=== PATIENT | female | born 1950 | race Caucasian/White ===

== ENCOUNTER 2016-11-29 14:54 | Emergency (ER) | payer MEDICARE, OTHER ==
[2016-11-29 15:24] VITALS: BP 145/75
--- NOTE | 2016-11-29 16:37 | ED Physician Documentation ---
PD HPI LOWER EXT INJURY - Stated complaint Stated Complaint: R ankle pain - Chief complaint Chief Complaint: Ext Problem - History obtained from History obtained from: Patient, Friend - History of Present Illness PD HPI LOW EXT INJURY LOCATION: Right, Lower leg, Ankle Type of injury: Twist Where injury occurred: Home Timing - onset: Today Timing - duration: Hours Timing - details: Abrupt onset, Still present Improved by: Rest, Immobilization Worsened by: Moving, Palpating Associated symptoms: No: Weakness, Numbness, Tingling, Swelling Contributing factors: No: Anticoagulated Similar symptoms before: Has not had sx before Recently seen: Not recently seen - Additional information Additional information: 66 y/o female stepped into a ditch on top of a drainage culvert and forcibly dorsiflexed the foot. She has pain in the calf with a burning sensation and the pain she had in her ankle is now resolved. She has pain with dorsiflexion. Review of Systems Constitutional: denies: Fever Eyes: denies: Decreased vision Respiratory: denies: Cough GI: denies: Vomiting Skin: denies: Rash Musculoskeletal: reports: Extremity pain, Pain with weight bearing. denies: Neck pain, Back pain, Joint pain, Extremity swelling Neurologic: denies: Generalized weakness, Focal weakness, Numbness PD PAST MEDICAL HISTORY - Past Medical History Past Medical History: Yes Cardiovascular: None Respiratory: None Neuro: None Endocrine/Autoimmune: None - Past Surgical History Past Surgical History: Yes General: Appendectomy /EXTENSION FORESTER: Hysterectomy HEENT: Tonsil/Adenoidectomy - Present Medications Home Medications: Ambulatory Orders Medication Instructions Recorded Confirmed Atorvastatin Calcium [Lipitor] 40 mg PO DAILY 02/18/16 02/18/16 Levothyroxine [Synthroid] 100 mcg PO QDAC 02/18/16 02/18/16 - Allergies Allergies/Adverse Reactions: Allergies Allergy/AdvReac Type Severity Reaction Status Date / Time atropine AdvReac Nausea Verified 11/29/16 15:24 corn AdvReac Unknown Verified 11/29/16 15:24 Penicillins AdvReac Itching Verified 02/18/16 22:12 Sulfa (Sulfonamide AdvReac Itching Verified 02/18/16 22:12 Antibiotics) - Social History Does the pt smoke?: No Smoking Status: Never smoker Does the pt drink ETOH?: Yes Does the pt have substance abuse?: No - Immunizations Immunizations are current?: Yes - POLST Patient has POLST: No PD ED PE NORMAL - Vitals Vital signs reviewed: Yes (hypertensive ) - General General: Alert and oriented X 3, No acute distress, Well developed/nourished - HEENT HEENT: Atraumatic, PERRL - Respiratory Respiratory: No respiratory distress - Derm Derm: Normal color, Warm and dry, No rash - Extremities Extremities: Other (There is pain to the posterior calf with dorsiflexion. There is no palpable defect in the tendon and the majority of pain is in the gastrocs. ) - Neuro Neuro: No motor deficit, No sensory deficit - Psych Psych: Normal mood, Normal affect Results - Vitals Vitals: Vital Signs - 24 hr 11/29/16 15:18 Temperature 36.7 C Heart Rate 75 Respiratory 14 Rate Blood Pressure 145/75 H O2 Saturation 100 Oxygen O2 Source Room air - Rads (name of study) right ankle Radiology: Prelim report reviewed (Impression: No acute fracture or subluxation. ), EMP read indepedently, See rad report PD MEDICAL DECISION MAKING - ED course Complexity details: reviewed results, re-evaluated patient, considered differential, d/w patient, d/w family ED course: 66 y/o female with acute dorsiflexion injury has pain along the achilles tendon and into the gastrocs. We have placed her into a walking boot and I have recommended she follow up with ortho for re-exam and consideration for further imaging in the next week. Departure - Departure Disposition: 01 Home, Self Care Clinical Impression: Achilles tendinitis of right lower extremity Condition: Stable Instructions: ED Tendon Rupture Achilles, Achilles Tendonitis Follow-Up: [facility] [Provider Group] Comments: wear the walking boot and follow up with the orthopedic clinic next week for re- examination and potential imaging.
--- NOTE | 2016-11-29 16:49 | XRAY Preliminary Report ---
Exam: XR Ankle 3 View RT IMPRESSION: No acute fracture or subluxation. [facility] SITE ID: [id number]
--- NOTE | 2016-11-29 16:52 | XRAY Report ---
EXAM: RIGHT ANKLE RADIOGRAPHY EXAM DATE: 11/29/2016 04:26 PM. CLINICAL HISTORY: Pain after falling. COMPARISON: None. TECHNIQUE: 3 views. FINDINGS: Bones: No fracture or bony destruction. Joints: Joint space and alignment appear satisfactory. Soft Tissues: No abnormal calcifications. IMPRESSION: No acute fracture or subluxation. [facility] Referring Provider Line: [phone] SITE ID: [id number]
== END 2016-11-29 17:16 | disposition home or self-care (01) ==
LOC: ED 14:54
DX: M76.61 Achilles tendinitis, right leg (principal); X50.1XXA Overexertion from prolonged static or awkward postures, initial encounter; R03.0 Elevated blood-pressure reading, without diagnosis of hypertension; Z90.710 Acquired absence of both cervix and uterus
CPT/HCPCS: 99283

== ENCOUNTER 2017-02-06 11:48 | Outpatient (CLI) | payer MEDICARE, OTHER | END 2017-02-06 11:49 | disposition home or self-care (01) | LOC: LAB 11:48 | PROVIDERS: ATTEND Internal Medicine | DX: E03.9 Hypothyroidism, unspecified (principal) | CPT/HCPCS: 36415; 84443 ==

== ENCOUNTER 2018-02-27 08:14 | Outpatient (CLI) | payer MEDICARE, OTHER ==
--- NOTE | 2018-02-27 12:10 | Ultrasound Report ---
Reason: ELEVATED LFT'S Procedure Date: 02/27/2018 Accession Number: [id number] / [id number] Procedure: US - Abdomen Limited CPT Code: FULL RESULT: EXAM: ABDOMEN ULTRASOUND LIMITED, RUQ EXAM DATE: 02/27/2018 08:28 AM. CLINICAL HISTORY: Elevated LFTs COMPARISON: None. TECHNIQUE: Real-time scanning was performed with static images obtained. FINDINGS: Liver: The liver is moderately and diffusely echogenic. Normal contour. No masses. Caudate lobe simple appearing cyst 1.3 cm. Right lobe simple appearing cyst 1.0 cm. The liver measures 20.2 cm. Main portal vein flow: Hepatopetal. Gallbladder: No stones, wall thickening, or sonographic Kern's sign. Biliary System: CBD measures 5 mm. No intrahepatic or extrahepatic ductal dilatation. 2 parapelvic right renal cysts are noted 1.3 cm and 1.1 cm. IMPRESSION: Moderate hepatic steatosis. Hepatomegaly. [facility]
== END 2018-02-27 08:15 | disposition home or self-care (01) ==
LOC: DI 08:14
PROVIDERS: ATTEND Internal Medicine
DX: R74.8 Abnormal levels of other serum enzymes (principal); K76.0 Fatty (change of) liver, not elsewhere classified
CPT/HCPCS: 76705

== ENCOUNTER 2018-03-13 09:45 | Outpatient (CLI) | payer MEDICARE, OTHER | END 2018-03-13 09:46 | disposition home or self-care (01) | LOC: RT 09:45 | PROVIDERS: ATTEND Internal Medicine Gastroenterology | DX: E78.5 Hyperlipidemia, unspecified (principal); E66.01 Morbid (severe) obesity due to excess calories | CPT/HCPCS: 93005 ==

== ENCOUNTER 2018-03-19 07:05 | Day surgery (SDC) | payer MEDICARE, OTHER ==
[2018-03-19] MEDS ORDERED: LACTATED RINGERS 1,000 ML IV ONE (07:37)
[2018-03-19] MEDS ORDERED: fentaNYL 250 MCG/5 ML VIAL IVP ONE (08:25)
[2018-03-19] MEDS ORDERED: MIDAZOLAM 2 MG/2 ML VIAL IVP ONE (08:25)
[2018-03-19 09:50] VITALS: BP 132/72
== END 2018-03-19 07:06 | disposition home or self-care (01) ==
LOC: SDS 07:05
PROVIDERS: ATTEND Internal Medicine Gastroenterology
PROC: 0DBN8ZZ Excision of Sigmoid Colon, Via Natural or Artificial Opening Endoscopic (ICD-10-PCS; 2018-03-19)
PROC: 0DBM8ZZ Excision of Descending Colon, Via Natural or Artificial Opening Endoscopic (ICD-10-PCS; principal; 2018-03-19 08:15)
DX: D12.4 Benign neoplasm of descending colon (principal); D12.5 Benign neoplasm of sigmoid colon; K57.30 Diverticulosis of large intestine without perforation or abscess without bleeding; E03.9 Hypothyroidism, unspecified; E78.5 Hyperlipidemia, unspecified; E66.01 Morbid (severe) obesity due to excess calories; Z68.41 Body mass index [BMI] 40.0-44.9, adult; Z86.19 Personal history of other infectious and parasitic diseases
CPT/HCPCS: 45385; J3010; J7120

== ENCOUNTER 2019-04-12 09:27 | Outpatient (CLI) | payer MEDICARE, OTHER ==
[2019-04-12 12:55] VITALS: BP 170/115
--- NOTE | 2019-04-12 12:55 | SLEEP CARE CONSULTATION ---
Information from patient questionnaire entered by Alejandra Nicholson. I have reviewed and concur with the information entered by Alejandra Nicholson. This document represents the service I personally performed and the decisions made by me, Jeimy Lindsay MD, [facility]. History of Present Illness Reason for Visit: New patient Chief Complaint: reports: Unrefreshed sleep, Snoring, Excessive daytime sleepiness, Observed pauses in breathing Duration of Symptoms: 2 YEARS Usual bedtime: 12:00 AM Time it takes to fall asleep: 15-30 minutes Snores at night: Yes Observed to quit breathing while asleep: Yes Number of times waking at night: 2-3 minutes Reasons for waking at night: reports: Snoring, Bathroom Toss, Turn, or Twitch while sleeping: No Recalls having dreams: Yes Usually gets out of bed at: 6:00-7:30 am Feels refreshed in the morning: Yes Morning headache: No Sleepy or fatigued during the day: Yes Ever fallen asleep while driving: No Takes day naps: Yes Dreams during day naps: No Prior sleep studies: No Additional HPI information: I had the pleasure of seeing Ms. Garcia today regarding the possibility of her having a sleep disorder. As you know, she is a 68 year old lady who complains of loud snore and was observed to stop breathing at night during a recent trip where she shared room with her friends. She sleeps alone at home. She can recall waking up on the average of 2 - 3 times during the night. Most of the time she wakes up because of having to use the bathroom. She has awakened occasionally because of her own snoring, but choking, or having to gasp for air. There is not a lot of tossing and turning in her sleep. No somniloquy (sleep talking) or somnambulism (sleep walking). She clenches her teeth at night. Generally she can recall having dreams. She occasionally has a morning headache that goes away quickly. During the day she complains of feeling sleepy and fatigued. Her score on [place] Sleepiness Scale is 11 out of 24. She has never fallen asleep while driving nor has had any accident due to sleepiness. She usually takes long naps during the day. Upon falling asleep during the day she denies having vivid dreams. She has never had sleep paralysis, experienced cataplexy or symptoms of restless leg syndrome. She denies having impaired concentration during the day. Subjective Initial [place] Sleepiness Scale score: 11 Past Medical History Past Medical History: reports: Hypothyroidism Social History The patient's occupation is retired. Patient is Single and lives in [place]. Have you smoked in the past 12 months: No Alcohol use: Yes Alcohol amount and frequency: 1 glass/month Caffeine use: Yes Caffeine amount and frequency: 1-2 cups/day Family History Family history of sleep disordered breathing: No Allergies and Home Medications Drug allergies reviewed: Yes Home medication list reviewed: Yes Review of Systems Weight gain over past 5 years: 40 Weight loss over past 5 years: 45 Cardiovascular: denies: high blood pressure, palpitations, chest pain, irregular heart rate or pulse, leg or foot swelling, have to sleep sitting up, other Respiratory: denies: shortness of breath, wheeze, sputum production, chronic cough, other Gastrointestinal: denies: heartburn, difficulty swallowing, nausea, vomitting, diarrhea, abdominal pain, other Urinary: reports: incontinence, urgency Neurological: denies: headaches, seizure, head trauma, disorientation, speech dysfunction, gait or balance problems, fainting or unconsciousness, other Psychiatric: denies: Attention Deficit Hyperactivity, anxiety, depression, mood disorder, claustrophobia, other Ear/Nose/Throat: reports: sinus problems, tonsillectomy, wisdom teeth removed Endocrine: reports: thyroid disease Musculoskeletal: reports: muscle pain or cramping Immunologic: reports: allergies to food or environment Physical Exam Vital signs obtained and entered by: Dr. Lindsay Blood Pressure: 170/115 Cuff size: regular Heart Rate: 72 O2 Saturation: 94 Height: 5 ft 6 in Weight: 258 lb Body Mass Index: 41.6 BMI Classification: Obesity Class 3 Mood/affect: normal HEENT: No craniofacial malformation Nostrils: patent to airflow Turbinates: normal Septum: midline Mouth and throat: narrow oropharynx Soft palate: long Hard palate: normal Uvula: normal Uvula visualization: 25% Mallampati Class III Tongue: normal in size Tonsils: absent bilaterally Chin and jaw: normal size and position Neck: normal w/o lymphadenopathy or thyromegaly Heart: regular rate and rhythm Lungs: clear bilaterally Abdomen: soft Extremities: no edema or clubbing Neurologic: intact Impression and Plan IMPRESSION: 1. Obstructive Sleep Apnea-Hypopnea Syndrome, as suggested by history of loud and irregular snoring, observed cessation of breath while asleep, frequent awakenings during the night, unrefreshed sleep, cognitive impairment, and daytime hypersomnolence. Narrow oropharynx and obesity are common predisposing factors for obstructive sleep apnea-hypopnea syndrome. Untreated obstructive sleep apnea can also cause hypertension. Pathophysiology of sleep-disordered breathing was discussed. I recommend proceeding to polysomnography to confirm the diagnosis and to assess severity. If she has significant sleep disordered breathing, a manual CPAP titration study will also be performed to find the optimal treatment pressure. I informed the patient of what the sleep studies involve and after some discussion, she agreed to proceed. Plan: 1. Schedule polysomnography + manual CPAP titration study and return in 1 to 2 weeks after the study to discuss result and initiate therapy. 2. Avoid long distance driving or when feeling sleepy. 3. Avoid alcohol, sedative and muscle relaxant around bedtime. 4. Attempt to lose weight. 5. Follow up with primary care provider for the high blood pressure recorded. I spent 100% of the 15 minute visit [id number] with the patient with greater than 50% of this was spent time counseling the patient and coordination of care.
== END 2019-04-12 09:28 | disposition home or self-care (01) ==
LOC: SC 09:27
PROVIDERS: ATTEND Internal Medicine Pulmonary Disease
DX: G47.10 Hypersomnia, unspecified (principal); R06.81 Apnea, not elsewhere classified; G47.8 Other sleep disorders; R41.89 Other symptoms and signs involving cognitive functions and awareness; R06.83 Snoring; E66.9 Obesity, unspecified; Z68.41 Body mass index [BMI] 40.0-44.9, adult
CPT/HCPCS: 99203; G0463; 99212

== ENCOUNTER 2019-05-26 10:17 | Outpatient (CLI) | payer MEDICARE, OTHER ==
[2019-05-26 11:17] VITALS: BP 140/96
--- NOTE | 2019-05-26 11:17 | SLEEP CARE CONSULTATION ---
Information from patient questionnaire entered by Esme Awan. I have reviewed and concur with the information entered by Esme Awan. This document represents the service I personally performed and the decisions made by me, Ruchi Trejo, RN, MSN, [employer]. History of Present Illness Initial [place] Sleepiness Scale score: 11 Current [place] Sleepiness Scale score: 10 Additional HPI information: MAHI FLORES returns for follow up of the recently performed polysomnography and infromed of findings. I explained the pathophysiology behind obstructive sleep apnea. We then spent quite a bit of time discussing different treatment options. For mild obstructive sleep apnea, surgery and oral appliance are alternatives to nasal CPAP therapy but in moderate or severe cases, nasal CPAP is the most effective and reliable treatment. I reviewed the impact of weight changes on sleep apnea and strongly recommended losing weight. After some discussion, the patient opted to go with the nasal CPAP therapy. We discussed the difference between initiating therapy with a manual titration study or with autoCPAP therapy. The patient chose autoCPAP therapy. Nasal autoCPAP set at [id number] will be ordered with rationale explained. A manual titration study will be ordered if unable to find optimal pressure with office adjustments. I explained how CPAP machine works with sample devices Respironics Dreamstation and [id number] and what to expect when using the machine. Using CPAP every night in order to get used to it was emphasized. Patient advised to put CPAP mask on before getting into bed so as not to fall asleep without CPAP. To assist acclimation to CPAP use, it could also be used for a short time during day while reading or watching TV. The patient was instructed to call the CPAP supplier to discuss any mechanical problem that may occur. If the mask given is uncomfortable or is difficult to keep on through the night even with adjustment, contact the CPAP supplier as many will replace with another mask style if notified before 30 days. If snoring or perceives is not getting enough air or too much air from the machine, notify this office. AAS patient education PAP tips reviewed and given to patient. Patient counseled not drink alcohol less than 4 hours before bedtime as it can increase snoring and apnea. Patient was cautioned about risks of drowsy driving until sleepiness symptoms resolve. Patient denies drowsy driving. AAS patient education on snoring and sleep apnea given and reviewed. Sleep Study - Polysomnography Polysomnography findings: The quality of the study is good. The patient had reduced sleep efficiency due to frequent and prolonged awakenings after the sleep onset. The sleep architecture was abnormal for sleep fragmentation and reduced amount of time spent in REM sleep. Respiratory monitoring showed moderate obstructive sleep apneahypopnea (AHI = 29.8) associated with frequent arousals, oxyhemoglobin desaturation and moderate hypoxia (billie oxygen saturation of 78%). Baseline oxygen saturation was normal. The respiratory events occurred independently of sleep stage and body position (supine AHI = 31.8; non-supine = 27.11). Snore was moderate to loud in intensity. There was moderate periodic leg movement of sleep contributing to the sleep fragmentation. Cardiac rhythm was normal sinus rhythm with occasional premature ventricular contractions. No abnormal behavior (parasomnia) observed during the night. Allergies and Home Medications Known drug allergies: Yes ( see list) Home medication list reviewed: Yes Allergy and home medication list: levothyroxine 1.75mcg daily Review of Systems Review of systems same as previous: Yes Physical Exam Blood Pressure: 140/96 (running this range of 120-140 / 85 monitored by PCP) Cuff size: long Heart Rate: 74 O2 Saturation: 97 Height: 5 ft 6 in Weight: 257 lb Body Mass Index: 41.4 BMI Classification: Obesity Class 3 Impression and Plan 1. Obstructive Sleep Apnea-Hypopnea Syndrome, moderate , with lowest oxygen saturation of 78%. Obviously this is the cause of the patients symptoms of unrefreshed sleep, and excessive daytime sleepiness. As mentioned above, the patient will be started on nasal autoCPAP therapy with pressure set at 4-15 cmH2 O. A manual titration study will be completed if unable to find optimal treatment pressure with office adjustments. Compliance guidelines also reviewed. A copy of compliance guidelines will be given for reference at check out. 2. Periodic limb movement, , that did fragment patients sleep. Periodic limb movement of sleep (PLMS) is characterized by episodes of repetitive limb movements that occur during sleep and usually involve the lower limbs. The etiology is unknown but can be associated with restless leg syndrome (RLS), neuropathy, spinal cord diseases, kidney disease, rheumatological disorders, narcolepsy, obstructive sleep apnea, and REM sleep behavior disorder. Other factors that can increase PLMS and/or RLS are heredity and iron deficiency as reflected by a low serum ferritin level below 50 to 75mcg / L. Several medications can precipitate or aggravate PLMS such as selective serotonin re- uptake inhibitor antidepressants, tricyclic antidepressants, lithium, and dopamine receptor antagonists with the exception of bupropion. Caffeine can also aggravate PLMS and should be avoided. Sleep hygiene methods can also improve sleep as well as lifestyle changes such as regular exercise. Patient was advised that further evaluation is indicated and to follow up with her PCP to rule out iron deficiency or other cause. 2. Elevated blood pressure. 140/96 at beginning of visit and 144/96 at end of visit. Patient does not monitor at home. It has been noted to be elevated at past and has discussed with PCP. Patient advised to follow up with PCP for further evaluation and discussed cardiac and stroke health risks associated with untreated hypertension. Patient agreed with plan. Patient advised of importance of monitoring her blood pressure at home so that her PCP can see what her blood pressure is at home. A home monitor can be bought at local pharmacies and then brought to PCP to check accuracy. She was informed of urgent guidelines for evaluation with systolic over 180 or diastolic over 110. * Nasal auto CPAP therapy, pressure at 4-15cm H2O. * Attempt to lose weight. * Avoid alcohol consumption near bedtime. * Follow up with PCP for further evaluation of elevated blood pressure as well as PLMS. * The patient is again cautioned about driving until sleepiness completely resolves. * Return one month after CPAP obtained. I will assess response to therapy and compliance at that time. I spent 100% of this 43 minute visit face to face with the patient with greater than 50% of this was spent time counseling the patient and coordination of care. Patient also had many questions about treatment process that were answered.
== END 2019-05-26 10:18 | disposition home or self-care (01) ==
LOC: SC 10:17
PROVIDERS: ATTEND Nurse Practitioner Family
DX: G47.33 Obstructive sleep apnea (adult) (pediatric) (principal); E66.9 Obesity, unspecified; Z68.41 Body mass index [BMI] 40.0-44.9, adult; R03.0 Elevated blood-pressure reading, without diagnosis of hypertension
CPT/HCPCS: 99215; G0463; 99212

== ENCOUNTER 2019-08-18 10:30 | Outpatient (CLI) | payer MEDICARE, OTHER ==
--- NOTE | 2019-08-18 11:45 | SLEEP CARE CONSULTATION ---
Information from patient questionnaire entered by Esme Awan. I have reviewed and concur with the information entered by Esme Awan. This document represents the service I personally performed and the decisions made by me, Ruchi Trejo, RN, MSN, [employer]EL[employer]. History of Present Illness Previous diagnosis: Moderate, Obstructive Sleep Apnea-Hypopnea Syndrome AHI: 29.8 Reason for follow up: first compliance Equipment type: CPAP Equipment obtained from: [employer] Mask style: Full face (Dreamwear - sent by [employer] as unable to get call back from [facility]) Mask brand: Respironics Backup mask available: Yes (nasal mask first but oral venting and nasal bridge soreness. ) Last cushion change: none since set up HPI additional information: has not followed up with PCP re blood pressure or monitor at home. She asked BP monitoring preferences. CPAP Compliance Data - Data Reviewed with Patient Average duration of nightly device use: 6.45 Compliance rate %: 90 Current pressure setting (cmH2O): 4-13 Humidity settin Heated hose settin Average residual AHI: 8.9 (lower range noted the past week with new mask ) Central apnea: 1.1 Obstructive apnea: 4.8 Hypopnea: 3.0 Average large leak: 56 sec Subjective Missed days of use due to: reports: travel (unable to get distilled water. ), other Patient concerns: reports: air blowing in eyes (when sleeping on side and adjusts mask ), nasal congestion (frequent and can affect ability to breathe through nose when using CPAP. ), epistaxis (with nasal mask ,none since ). denies: mask leak noise, condensation in mask/hose, dry mouth, nose, throat Observed to snore while using device: No (sleeps alone ) Current pressure setting perceived as: comfortable On therapy, patient: reports: sleeping better, awakening more refreshed (slightly ), more rested overall (slightly ). denies: drowsiness while driving Initial [place] Sleepiness Scale score: 11 Current [place] Sleepiness Scale score: 10 Allergies and Home Medications Known drug allergies: Yes (see list) Home medication list reviewed: Yes (no changes ) Allergy and home medication list: mucinex prn Review of Systems Review of systems same as previous: Yes Physical Exam Blood Pressure: 170/90 (140/90 at end of visit. ) Cuff size: long Heart Rate: 88 O2 Saturation: 97 Height: 5 ft 6 in Weight: 264 lb Weight change since last visit: gained 7 pounds Body Mass Index: 42.6 BMI Classification: Morbidly Obese Impression and Plan 1. Obstructive Sleep Apnea-Hypopnea Syndrome, moderate, with fair treatment compliance and good apnea control. On CPAP therapy, the patient has better sleep quality and is slightly more rested overall. The patients pressure will be changed to autoCPAP 8-12 cmH20 For elevation of residual AHI. Patient advised to contact me if pressure change is uncomfortable so that it can be adjusted. Goals for apnea control discussed.Mask leaks predominately from when patient sleeps on their side can be reduced by using a CPAP pillow. A CPAP pillow sample was shown. This and other styles can be bought online for about $60. I also fitted her with a large mask cushion - medium from her set to see if it fits better. Nasal congestion can be reduced with increasing the CPAP humidity as shown on sample device. The heated hose can be adjusted higher if condensation with higher humidity setting. Saline nasal spray can also be used prior to CPAP to clear nasal secretions and wash off any nasal allergens to facilitate nasal breathing. In addition, a steamy shower before bed will often assist nasal drainage. Printed instructions given on how to change humidity and heated hose settings with rationale explaining why to change.Patient's apnea severity and rationale for treatment to reduce apnea, improve sleep quality and reduce cardiovascular and cerebrovascular events was reviewed. 2. Elevated blood pressure, higher initially 170/90 and by end of visit 140/90. Health risks of untreated hypertension discussed and rationale for follow up and importance of monitoring at home. Urgent followup guidelines given. Patient advised to follow up with PCP for further evaluation of elevated blood pressure. Patient agreed with plan. * Change CPAP pressure to 8-12 cmH2O * Implement methods to reduce mask leaks and nasal congestion. * Notify me if snoring with mask or feeling that the pressure is too much or too little * Attempt to lose weight * Call this office if any problems using CPAP * monitor blood pressure * Follow up with PCP for further evaluation of blood pressure. * Return for follow up in 1-2 months , or sooner if concerns arise Time Spent with Patient (minutes): 37 I spent 100% of this visit face to face with the patient with greater than 50% of this was spent time counseling the patient and coordination of care.
[2019-08-18 11:46] VITALS: BP 170/90
== END 2019-08-18 10:31 | disposition home or self-care (01) ==
LOC: SC 10:30
PROVIDERS: ATTEND Nurse Practitioner Family
DX: G47.33 Obstructive sleep apnea (adult) (pediatric) (principal); E66.01 Morbid (severe) obesity due to excess calories; Z68.41 Body mass index [BMI] 40.0-44.9, adult; R03.0 Elevated blood-pressure reading, without diagnosis of hypertension
CPT/HCPCS: 99214; G0463; 99212

== ENCOUNTER 2019-12-27 11:12 | Outpatient (CLI) | payer MEDICARE, OTHER ==
--- NOTE | 2019-12-27 12:07 | SLEEP CARE CONSULTATION ---
Information from patient questionnaire entered by Esme Awan. I have reviewed and concur with the information entered by Esme Awan. This document represents the service I personally performed and the decisions made by me, Ruchi Trejo, RN, MSN, [employer]. History of Present Illness Service Date and Time: 12/27/2019 1112 Previous diagnosis: Moderate, Obstructive Sleep Apnea-Hypopnea Syndrome AHI: 29.8 (in 2019) Reason for follow up: other (4 month with pressure change) Equipment type: CPAP Equipment obtained from: [employer] Mask style: Full face Mask brand: Respironics Backup mask available: Yes (old mask) Last cushion change: 1 month Prior sleep studies: Yes Year and Where: 2019 - [facility] Sleep HPI additional information: saw her PCP for elevated Blood pressure and monitors at home and running in range of 140/80 most days. No blood pressure medications added. CPAP Compliance Data - Data Reviewed with Patient Average duration of nightly device use: 6.55 Compliance rate %: 82.2 (90 days) Current pressure setting (cmH2O): 8-12 Humidity settin Heated hose settin Average residual AHI: 3.9 Average large leak: 5 min 27 sec Subjective Patient concerns: reports: nasal congestion (seasonal allergies ). denies: aerophagia, mask discomfort, air blowing in eyes, mask leak noise, condensation in mask/hose, dry mouth, nose, throat, epistaxis, other Observed to snore while using device: No (single sleeps alone) Current pressure setting perceived as: comfortable On therapy, patient: reports: sleeping better, awakening more refreshed, being more awake and alert during the day, more rested overall (however, has some mid afternoon fatigue). denies: drowsiness while driving Initial [place] Sleepiness Scale score: 11 (in 2019) Current [place] Sleepiness Scale score: 8 Allergies and Home Medications Known drug allergies: Yes (see list ) Home medication list reviewed: No (no changes stated ) Review of Systems Review of systems same as previous: Yes Physical Exam Blood Pressure: 160/100 Cuff size: long Heart Rate: 60 O2 Saturation: 98 Height: 5 ft 6 in Weight: 261 lb Body Mass Index: 42.1 BMI Classification: Morbidly Obese Impression and Plan 1. Obstructive Sleep Apnea-Hypopnea Syndrome, moderate , with good treatment compliance and good apnea control. On CPAP therapy, the patient has better sleep quality and is more rested overall. The residual AHI reduced from 8.9 to 3.6 on new pressure of [id number]. She has gained some weight since last seen. Current 90% average pressure is 11.4 and mean 9.7cmH20. I explained how her weight affects her apnea severity and CPAP pressure. She is advised to lose weight. Morbid obesity can also increase health risks as addressed at last visit. She is advised to discuss weight loss goals with her PCP and consider a diet consultation with rationale explained. The new full face mask is working much better especially with her nasal congestion from allergies. Nasal congestion can be reduced with increasing the CPAP humidity as shown on sample device. The heated hose can be adjusted higher if condensation with higher humidity setting. Saline nasal spray sample can also be used prior to CPAP to clear nasal secretions and wash off any nasal allergens to facilitate nasal breathing. In addition, a steamy shower before bed will often assist nasal drainage. Patient's apnea severity and rationale for treatment to reduce apnea, improve sleep quality and reduce cardiovascular and cerebrovascular events was reviewed. I also reviewed the benefit of consistent device use of CPAP for blood pressure. 2. Elevated blood pressure. 160/100 today at end of visit. Patient has been monitoring at home and generally 140/80 range or a little higher or lower. She saw her PCP as advised at last visit when blood pressure elevated. She is advised to retake once home later and rested and to contact PCP if still elevated. Urgent guidelines for follow up discussed if range of systolic 180 or higher or diastolic 110-120 or higher. I also discussed how weight loss can reduce blood pressure and can be noted with just 10 pounds or more. * * Continue auto CPAP pressure to 8-12 cmH2O * Notify me if snoring with mask or feeling that the pressure is too much or too little * implement methods to reduce nasal congestion * Attempt to lose weight * monitor blood pressure * Call this office if any problems using CPAP * Return for follow up in 6 months , or sooner if concerns arise Visit Type: In Office Time Spent with Patient (minutes): 25 Provider Statement: I spent 100% of the Face to Face Visit with the patient with greater than 50% spent counseling the patient and coordination of care.
[2019-12-27 12:08] VITALS: BP 160/100
== END 2019-12-27 11:13 | disposition home or self-care (01) ==
LOC: SC 11:12
PROVIDERS: ATTEND Nurse Practitioner Family
DX: G47.33 Obstructive sleep apnea (adult) (pediatric) (principal); R03.0 Elevated blood-pressure reading, without diagnosis of hypertension; E66.01 Morbid (severe) obesity due to excess calories; Z68.41 Body mass index [BMI] 40.0-44.9, adult
CPT/HCPCS: 99214; G0463; 99212

== ENCOUNTER 2020-04-21 19:47 | Outpatient (CLI) | payer MEDICARE, OTHER | END 2020-04-21 19:48 | disposition home or self-care (01) | LOC: COV 19:47 | PROVIDERS: ATTEND Family Medicine | DX: B34.9 Viral infection, unspecified (principal); R05 Cough; M79.10 Myalgia, unspecified site; R53.83 Other fatigue; J02.9 Acute pharyngitis, unspecified; R09.81 Nasal congestion; Z20.828 Contact with and (suspected) exposure to other viral communicable diseases ==

== ENCOUNTER 2020-11-15 10:27 | Outpatient (CLI) | payer MEDICARE, OTHER ==
[2020-11-15 11:25] LABS: BASOPHILS # (AUTO) 0.1 10^3/uL (0.0-0.1); BASOPHILS % (AUTO) 0.7 %; EOSINOPHILS # (AUTO) 0.1 10^3/uL (0.0-0.7); EOSINOPHILS % (AUTO) 1.7 %; HCT - HEMATOCRIT 52.5 % (37.0-47.0); HGB - HEMOGLOBIN 17.2 g/dL (12.0-16.0); LYMPHOCYTES # (AUTO) 1.8 10^3/uL (1.5-3.5); MEAN CORPUSCULAR HEMOGLOBIN 29.8 pg (27.0-31.0); MEAN CORPUSCULAR HGB CONC 32.8 g/dL (32.0-36.0); MEAN CORPUSCULAR VOLUME 90.8 fL (81.0-99.0); MEAN PLATELET VOLUME 10.4 fL (7.9-10.8); MONOCYTES # (AUTO) 0.4 10^3/uL (0.0-1.0); MONOCYTES % (AUTO) 5.1 %; NEUTROPHILS # (AUTO) 5.1 10^3/uL (1.5-6.6); PLT - PLATELET COUNT 253 10^3/uL (130-450); RED BLOOD COUNT 5.78 10^6/uL (4.20-5.40); RED CELL DISTRIBUTION WIDTH 13.5 % (12.0-15.0); WHITE BLOOD COUNT 7.5 x10^3/uL (4.8-10.8)
[2020-11-15 11:39] LABS: ALBUMIN 4.3 g/dL (3.2-5.5); ALBUMIN/GLOBULIN RATIO 1.5 (1.0-2.2); ALKALINE PHOSPHATASE 77 IU/L (42-121); ALT ALANINE AMINOTRANSFERASE 48 IU/L (10-60); AST ASPARTATE AMINOTRANSFERASE 30 IU/L (10-42); BUN - BLOOD UREA NITROGEN 19 mg/dL (6-20); CALCIUM 9.2 mg/dL (8.5-10.3); CARBON DIOXIDE - CO2 27 mmol/L (21-32); CHLORIDE 102 mmol/L (101-111); CHOL/HDL RATIO 6.8 (<4.4); CHOLESTEROL 238 mg/dL; CREATININE 0.8 mg/dL (0.4-1.0); GFR - MDRD 71 (>89); GLUCOSE 139 mg/dL (70-100); HDL CHOLESTEROL 35 mg/dL; LDL CHOLESTEROL,CALCULATED 172 mg/dL; LDL/HDL RATIO 4.9 (<4.4); MAGNESIUM 2.3 mg/dL (1.7-2.8); POTASSIUM 4.9 mmol/L (3.5-5.0); SODIUM 139 mmol/L (135-145); TOTAL PROTEIN 7.2 g/dL (6.7-8.2); TRIGLYCERIDES 156 mg/dL; VLDL CHOLESTEROL 31 mg/dL
[2020-11-15 11:56] LABS: ESTIMATED AVERAGE GLUCOSE 134 mg/dL (70-100); HEMOGLOBIN A1c% 6.3 % (4.27-6.07)
== END 2020-11-15 10:28 | disposition home or self-care (01) ==
LOC: LAB 10:27
PROVIDERS: ATTEND Internal Medicine
DX: E78.5 Hyperlipidemia, unspecified (principal); Z13.6 Encounter for screening for cardiovascular disorders; Z79.899 Other long term (current) drug therapy; E03.9 Hypothyroidism, unspecified; R76.0 Raised antibody titer; R25.2 Cramp and spasm; R30.0 Dysuria; R73.01 Impaired fasting glucose
CPT/HCPCS: 36415; 80053; 80061; 83036; 83721; 83735; 84443; 85025

== ENCOUNTER 2020-11-30 15:12 | Outpatient (CLI) | payer MEDICARE, OTHER ==
--- NOTE | 2020-11-30 16:11 | CT Report ---
PROCEDURE: HEAD WO INDICATIONS: POST MENOPAUSAL, WORSENING HEADACHES TECHNIQUE: Noncontrast 4.5 mm thick angled axial sections acquired from the foramen magnum to the vertex. For r adiation dose reduction, the following was used: automated exposure control, adjustment of mA and/or kV according to patient size. COMPARISON: None FINDINGS: Image quality: Excellent. CSF spaces: Basal cisterns are patent. No extra-axial fluid collections. The ventricles are symmet juanjo in size and shape. Brain: No intracranial bleeds or masses. There is cerebral volume loss for age, with resultant vent ricular and sulcal prominence. There are periventricular and deep white matter chronic small vessel ischemic changes. Parafalcine dural ossification centers. There is intracranial internal carotid silvana ry atherosclerosis. Skull and face: Hyperostosis frontalis. Calvarium and visualized facial bones appear intact, without suspicious lesions. Sinuses: Visualized sinuses and mastoids are clear. IMPRESSION: No acute intracranial disease process. Reviewed by: Edwina Gabriel MD, PhD on 11/30/2020 4:09 PM PDT Approved by: Edwina Gabriel MD, PhD on 11/30/2020 4:09 PM PDT Station ID: [id number]
--- NOTE | 2020-11-30 16:41 | DEXA Report ---
PROCEDURE: Dexa Spine and/or Hip INDICATIONS: POST MENOPAUSAL, WORSENING HEADACHES TECHNIQUE: Dual energy x-ray absorptiometry (DXA) was performed on a Octapoly System. Regions measur ed are the AP Spine, femoral neck, and if needed forearm. COMPARISON: None. FINDINGS: Lumbar Spine: Bone Mineral Density 1.175 g/cm/cm,T score 0, normal Left Hip: Bone Mineral Density 1.080 g/cm/cm,T score 0.6, normal Left Femoral Neck: Bone Mineral Density 0.982 g/cm/cm, T score -0.4, normal (T score greater or equal to -1.0: NORMAL) (T score from -1.1 to -2.4: OSTEOPENIA) (T score less than or equal to -2.5 to: OSTEOPOROSIS) Impression: Normal bone mineral density. Patients with diagnosis of osteoporosis or osteopenia should have regular bone mineral density assess ment. For those eligible for Medicare, routine testing is allowed once every 2 years. Testing frequ ency can be increased for patients who have rapidly progressing disease or for those who are receivin g medical therapy to restore bone mass. Reviewed by: Sanjuana Muñoz MD on 11/30/2020 4:40 PM PDT Approved by: Sanjuana Muñoz MD on 11/30/2020 4:40 PM PDT Station ID: [id number]
== END 2020-11-30 15:13 | disposition home or self-care (01) ==
LOC: DI 15:12
PROVIDERS: ATTEND Internal Medicine
DX: Z78.0 Asymptomatic menopausal state (principal); G43.909 Migraine, unspecified, not intractable, without status migrainosus

== ENCOUNTER 2020-12-21 10:39 | Outpatient (CLI) | payer MEDICARE, OTHER ==
[2020-12-21 11:22] VITALS: BP 140/82
--- NOTE | 2020-12-21 11:22 | SLEEP CARE CONSULTATION ---
Information from patient questionnaire entered by Esme Awan. I have reviewed and concur with the information entered by Esme Awan. This document represents the service I personally performed and the decisions made by , Rosa Al ARNP. History of Present Illness Service Date and Time: 12/21/2020 1039 Previous diagnosis: Moderate, Obstructive Sleep Apnea-Hypopnea Syndrome AHI: 29.8 (in 2019) Reason for follow up: annual (last seen 12/2019) Equipment type: CPAP Equipment obtained from: [employer] (getting supplies as needed) Mask style: Full face Backup mask available: Yes (old mask) Last cushion change: 2 months Prior sleep studies: Yes Year and Where: 2019 - [facility] Sleep HPI additional information: MAHI FLORES was diagnosed to have moderate, AHI 29.8, obstructive sleep apnea-hypopnea syndrome and returned today for CPAP therapy annual follow-up. CPAP Compliance Data - Data Reviewed with Patient Average duration of nightly device use: 6 hr 22 min Compliance rate %: 82.8 (180 days) Current pressure setting (cmH2O): 8-12 Humidity settin Heated hose settin Average residual AHI: 5.3 Average large leak: 12 min 13 sec Subjective Missed days of use due to: reports: mask issues, illness Patient concerns: reports: mask discomfort, dry mouth, nose, throat (dry mouth, sometimes sore throat). denies: aerophagia, air blowing in eyes, mask leak noise, condensation in mask/hose, nasal congestion, epistaxis, other Observed to snore while using device: No Current pressure setting perceived as: comfortable On therapy, patient: reports: sleeping better, awakening more refreshed, being more awake and alert during the day, more rested overall. denies: drowsiness while driving Initial [place] Sleepiness Scale score: 11 (in 2019) Current [place] Sleepiness Scale score: 11 Allergies and Home Medications Home medication list reviewed: Yes (motrin for tooth pain) Review of Systems Review of systems same as previous: Yes (tooth extraction 2 days ago) Physical Exam Blood Pressure: 140/82 Cuff size: wrist Heart Rate: 58 O2 Saturation: 97 Height: 5 ft 6 in Weight: 250 lb Body Mass Index: 40.3 BMI Classification: Morbidly Obese Impression and Plan 1. Obstructive Sleep Apnea-Hypopnea Syndrome, moderate, with good treatment compliance and fair apnea control with minimally elevated AHI. On CPAP therapy, the patient has better sleep quality and is more rested overall. She has been getting sleepy in the afternoons. I advised her to increase her sleep time to 7- 9 hours of sleep and we will change her pressure to try to reduce afternoon fatigue. The patients pressure will be changed to autoCPAP 10-12 cmH20 for elevation of residual AHI. Patient advised to contact me if pressure change is uncomfortable so that it can be adjusted. Goals for apnea control discussed. She has been having some mouth dryness and her humidity is set at 3. I advised her to increase her humidity to 4 to reduce dryness. Oral dryness can be reduced by adjusting humidity setting higher or heated hose lower or by adjusting both settings. Patient's apnea severity and rationale for treatment to reduce apnea, improve sleep quality and reduce cardiovascular and cerebrovascular events was reviewed. * Change auto CPAP pressure to 10-12 cmH2O * Notify me if snoring with mask or feeling that the pressure is too much or too little * Attempt to lose weight * Call this office if any problems using CPAP * Return for follow up in 1 year, or sooner if concerns arise Counseling Topics: Spare mask, Weight loss health impact Visit Type: In Office Time Spent with Patient (minutes): 20 Provider Statement: I spent 100% of the Face to Face Visit with the patient with greater than 50% spent counseling the patient and coordination of care.
== END 2020-12-21 10:40 | disposition home or self-care (01) ==
LOC: SC 10:39
PROVIDERS: ATTEND Nurse Practitioner Family
DX: G47.33 Obstructive sleep apnea (adult) (pediatric) (principal); E66.01 Morbid (severe) obesity due to excess calories; Z68.41 Body mass index [BMI] 40.0-44.9, adult
CPT/HCPCS: 99213; G0463; 99212

== ENCOUNTER 2021-03-06 14:35 | Outpatient (CLI) | payer MEDICARE, OTHER ==
--- NOTE | 2021-03-06 15:31 | Ultrasound Report ---
PROCEDURE: Duplex Ext Veins Left INDICATIONS: Left thigh, knee, and leg pain TECHNIQUE: Real-time imaging, as well as color and pulse Doppler interrogation, were performed of the lower extr emity deep veins from the inguinal ligament to the popliteal fossa. COMPARISON: None. FINDINGS: The deep veins are normally compressible, and free of intraluminal thrombus. Color and pu lse Doppler demonstrate normal phasic intraluminal flow. There is normal augmentation response to di stal compression maneuver. IMPRESSION: No sonographic evidence of DVT. Reviewed by: Mj Gasca MD on 03/06/2021 3:30 PM PDT Approved by: Mj Gasca MD on 03/06/2021 3:30 PM PDT Station ID: [id number]
== END 2021-03-06 14:36 | disposition home or self-care (01) ==
LOC: DI 14:35
PROVIDERS: ATTEND Internal Medicine
DX: M25.562 Pain in left knee (principal); M79.605 Pain in left leg; M79.652 Pain in left thigh

== ENCOUNTER 2021-03-27 13:26 | Outpatient (CLI) | payer MEDICARE, OTHER ==
--- NOTE | 2021-03-27 15:41 | MRI Report ---
PROCEDURE: Femur/Thigh LT W/O INDICATIONS: LT KNEE PAIN, LT THIGH PAIN, HX SCHWANNOMA LT THIG TECHNIQUE: Noncontrast coronal and sagittal T1 spin echo and STIR; axial T1 spin echo and T2 fast spin echo with fat saturation through the left thigh. COMPARISON: None. FINDINGS: Image quality: Excellent. Bones: Mild to moderate left hip joint osteoarthritic changes are seen. No marrow edema. No fracture or dislocation. No evidence of avascular necrosis of femoral head. The overlying cortex appears intac t. No fractures lines or intra-osseous lesions. Soft tissues: The scanned muscles demonstrate normal overall bulk and internal signal. Subcutaneous tissues appear normal as well. No soft tissue masses are present. IMPRESSION: 1. No soft tissue mass or evidence of schwannoma seen in visualized portion of left thigh. Most dista l portion of left thyroid is not included on this study and please correlate with MRI of knee finding . 2. Left hip joint osteoarthritis. No marrow edema. No fracture or dislocation. No suspicious bony les ion. No evidence of avascular necrosis of femoral head. Reviewed by: Damon Gibson MD on 03/27/2021 3:40 PM PDT Approved by: Damon Gibson MD on 03/27/2021 3:40 PM PDT Station ID: [id number]
--- NOTE | 2021-03-27 16:55 | MRI Report ---
PROCEDURE: Knee LT W/O INDICATIONS: LT KNEE PAIN, LT THIGH PAIN, HX SCHWANNOMA LT THIG TECHNIQUE: Noncontrast sagittal PD fast spin echo and T2 fast spin echo with fat saturation, sagittal 3-D gradie nt sequence with fat saturation; coronal T1 spin echo and PD fast spin echo with fat saturation, and axial PD fast spin echo with fat saturation through the knee. COMPARISON: None. FINDINGS: Image quality: Excellent. Menisci: There is medial and lateral meniscal extrusions. There is ill-defined degenerative tear inv olving the posterior horn and body of the medial meniscus extending into the posterior root. A horizo ntal tear is seen in the body of the lateral meniscus. Cruciate ligaments: The anterior and posterior cruciate ligaments appear intact. Medial structures: The medial collateral ligament appears intact. The semimembranosus tendon insert ions and meniscocapsular junction appear intact. Visualized portions of the pes anserinus tendons ap pear normal. No abnormal bursal fluid. Lateral structures: The lateral collateral ligament, long and short heads of the biceps femoris tend on appear intact. The popliteus tendon appears normal. Iliotibial band appears normal. Anterior structures: The quadriceps and patellar tendons appear intact. Patellar alignment is gissell l. No femoral trochlear dysplasia or ventral trochlear prominence. No edema in the infrapatellar fa t pad. There is a small amount of prepatellar bursal fluid, consistent with bursitis. Bones and cartilage: No bone marrow contusions or fractures. Tricompartment chondromalacia, most pro nounced in the patellofemoral joint and medial femorotibial joint. Joint space: There is small knee joint effusion. No Byrne?s cyst. Multilocular cysts are seen post erior to the distal femur. There is a small synovial cyst or ganglion cyst adjacent to the proximal t ibiofibular joint and the popliteus tendon. Normal appearing synovial plicae are incidentally noted. IMPRESSION: 1. Degenerative tear of the posterior horn and body of the medial meniscus. 2. Horizontal tear of the body of the lateral meniscus. 3. Mild prepatellar bursitis. 4. Tricompartmental chondromalacia, most pronounced in the patellofemoral joint and medial femorotibi al joint. 5. Multilocular cysts posterior to the distal femur, compatible with synovial cysts or ganglion cysts . 6. Small synovial cyst or ganglion cyst adjacent to the proximal tibiofibular joint and popliteus ten don. Reviewed by: Brian Castillo MD on 03/27/2021 4:53 PM PDT Approved by: Brian Castillo MD on 03/27/2021 4:53 PM PDT Station ID: [id number]
== END 2021-03-27 13:27 | disposition home or self-care (01) ==
LOC: DI 13:26
PROVIDERS: ATTEND Internal Medicine
DX: Z86.018 Personal history of other benign neoplasm (principal); S83.242A Other tear of medial meniscus, current injury, left knee, initial encounter; S83.282A Other tear of lateral meniscus, current injury, left knee, initial encounter; M70.42 Prepatellar bursitis, left knee; M22.42 Chondromalacia patellae, left knee; R93.6 Abnormal findings on diagnostic imaging of limbs; M16.12 Unilateral primary osteoarthritis, left hip

== ENCOUNTER 2021-05-01 12:04 | Day surgery (SDC) | payer MEDICARE, OTHER ==
[2021-05-01] MEDS ORDERED: LACTATED RINGERS 1,000 ML IV ONE (12:43)
--- NOTE | 2021-05-01 12:48 | ANESTHESIA ---
Pre-Anesthesia VS, & Labs - Diagnosis hx of polyps - Procedure colonoscopy Vital Signs: Temp Pulse Resp BP Pulse Ox 36.5 C 68 16 167/87 H 100 05/01/21 12:15 05/01/21 12:15 05/01/21 12:15 05/01/21 12:15 05/01/21 12:15 Height: 5 ft 6 in Weight (kg): 114 kg Body Mass Index: 40.5 BMI Classification: Morbidly Obese - NPO >8 hours - Is Patient ?: No Home Medications and Allergies Levothyroxine [Synthroid] 175 mcg PO QDAC 02/18/16 Allergies/Adverse Reactions: Allergies Allergy/AdvReac Type Severity Reaction Status Date / Time corn AdvReac gastric Verified 04/26/21 13:12 Penicillins AdvReac Itching Verified 02/18/16 22:12 Sulfa (Sulfonamide AdvReac Itching Verified 02/18/16 22:12 Antibiotics) Anes History & Medical History - Anesthetic History Anesthesia Complications: reports: No previous complications Family history of Anesthesia Complications: Denies Family history of Malignant Hyperthermia: Denies - Medical History Cardiovascular: reports: Hypertension, Murmur Pulmonary: reports: Asthma, Sleep apnea Gastrointestinal: reports: Colon polyps, Hepatitis, Other Urinary: reports: Chronic bladder infection Musculoskeletal: reports: None Endocrine/Autoimmune: reports: HyPOthyroidism Skin: reports: None Smoking Status: Never smoker - Surgical History General: reports: Appendectomy, Colonoscopy Eyes Ears Nose Throat (EENT): reports: Tonsil/Adenoidectomy Gynecologic: reports: Hysterectomy, LEEP (Cervical surgery) Exam General: Alert, Oriented x3, Cooperative Dental: WNL Mouth Openin Fingerbreadth Mallampati classification: II Thyromental Distance: 4-6 cm Plan Anesthesia Type: Total IV Consent for Procedure(s) Verified and Reviewed: Yes Code Status: Attempt Resuscitation ASA classification: 3-Severe systemic disease Is this case an emergency?: No
[2021-05-01] MEDS ORDERED: PROPOFOL 200 MG/20 ML VIAL IVP ONE (12:53)
[2021-05-01] MEDS ORDERED: LACTATED RINGERS 400 ML IV ONE (13:20)
[2021-05-01 13:38] VITALS: BP 159/95
--- NOTE | 2021-05-01 14:24 | ANESTHESIA POST OP EVALUATION ---
Anesthesia Post Eval - Post Anesthesia Eval Vitals: Last Vital Signs Temp 36.8 C 05/01/21 13:35 Pulse 62 05/01/21 13:35 Resp 15 05/01/21 13:35 BP 159/95 H 05/01/21 13:35 Pulse Ox 96 05/01/21 13:35 CV Function Including HR & BP: Stable Pain Control: Satisfactory Nausea & Vomiting: Negative Mental Status: Baseline Respiratory Status: Airway Patent Hydration Status: Satisfactory Anesthesia Complications: None
== END 2021-05-01 12:05 | disposition home or self-care (01) ==
LOC: SDS 12:04
PROVIDERS: ATTEND Surgery
PROC: 0DBL8ZZ Excision of Transverse Colon, Via Natural or Artificial Opening Endoscopic (ICD-10-PCS; 2021-05-01)
PROC: 0DBP8ZZ Excision of Rectum, Via Natural or Artificial Opening Endoscopic (ICD-10-PCS; 2021-05-01)
PROC: 0DBK8ZZ Excision of Ascending Colon, Via Natural or Artificial Opening Endoscopic (ICD-10-PCS; principal; 2021-05-01 13:30)
DX: Z12.11 Encounter for screening for malignant neoplasm of colon (principal); D12.2 Benign neoplasm of ascending colon; D12.3 Benign neoplasm of transverse colon; K62.1 Rectal polyp; K64.8 Other hemorrhoids; K64.4 Residual hemorrhoidal skin tags; G47.33 Obstructive sleep apnea (adult) (pediatric); Z99.89 Dependence on other enabling machines and devices; E66.01 Morbid (severe) obesity due to excess calories; Z68.41 Body mass index [BMI] 40.0-44.9, adult
CPT/HCPCS: 45380; J7120

== ENCOUNTER 2021-05-22 08:00 | Outpatient (CLI) | payer MEDICARE, OTHER ==
--- NOTE | 2021-05-22 08:20 | XRAY Report ---
PROCEDURE: Knee 4 View LT INDICATIONS: LEFT KNEE PAIN TECHNIQUE: 4 views of the left knee(s) were acquired. COMPARISON: MRI of left knee dated 03/27/2021 FINDINGS: Bones: No fractures or dislocations. Moderate medial femoral-tibial compartment osteoarthritis is a gain seen. Mild to moderate patellofemoral compartment osteoarthritis is also noted. No suspicious arjun ny lesions. Soft tissues: There is moderate amount of joint effusion. No suspicious soft tissue calcifications. IMPRESSION: Mild to moderate patellofemoral compartment osteoarthritis and moderate medial femoral-t ibial compartment osteoarthritis. No fracture or dislocation. Moderate joint effusion. Reviewed by: Damon Gibson MD on 05/22/2021 8:18 AM PST Approved by: Damon Gibson MD on 05/22/2021 8:18 AM PST Station ID: [id number]
== END 2021-05-22 23:59 ==
LOC: DI.N 08:00
PROVIDERS: ATTEND Orthopaedic Surgery
DX: M17.12 Unilateral primary osteoarthritis, left knee (principal); M25.462 Effusion, left knee

== ENCOUNTER 2021-06-15 09:41 | Outpatient (CLI) | payer MEDICARE, OTHER ==
--- NOTE | 2021-06-15 10:26 | SLEEP CARE CONSULTATION ---
Information from patient questionnaire entered by Yosvany Bass MA. I have reviewed and concur with the information entered by Yosvany Bass MA. This document represents the service I personally performed and the decisions made by , Rosa Al ARNP. History of Present Illness Service Date and Time: 06/15/2021 0941 Previous diagnosis: Moderate, Obstructive Sleep Apnea-Hypopnea Syndrome AHI: 29.8 (in 2019) Reason for follow up: six month (6 MONTH FOLLOW UP VISIT, RECAL) Equipment type: CPAP Equipment obtained from: [employer] (getting supplies as needed) Mask style: Full face Backup mask available: Yes (old mask) Prior sleep studies: Yes Year and Where: 2018 - [facility] HPI additional information: MAHI FLORES was diagnosed to have moderate, AHI 29.8, obstructive sleep apnea-hypopnea syndrome and returned today for CPAP therapy six month follow-up. Sleep Study - Results Prior sleep studies: Yes Year and Where: 2019 - [facility] CPAP Compliance Data - Data Reviewed with Patient Average duration of nightly device use: 6 HOURS AND 27 MINUTES Compliance rate %: 82.2 (09-22-2020 to 03-20-21) Current pressure setting (cmH2O): 10-12 Humidity settin Heated hose settin Average residual AHI: 4.1 Average large leak: 10 MINUTES 45 SECONDS Compliance data discussion: She got letter about recall in March and stopped using her device. Subjective Missed days of use due to: reports: other (recall) Patient concerns: denies: aerophagia, mask discomfort, air blowing in eyes, mask leak noise, condensation in mask/hose, nasal congestion, dry mouth, nose, throat, epistaxis, other Observed to snore while using device: No Current pressure setting perceived as: comfortable On therapy, patient: reports: sleeping better, awakening more refreshed, being more awake and alert during the day, more rested overall. denies: drowsiness while driving Initial [place] Sleepiness Scale score: 11 (in 2018) Current [place] Sleepiness Scale score: 11 (in 2020) Allergies and Home Medications Known drug allergies: Yes (Penicillins, sulfa) Home medication list reviewed: Yes Allergy and home medication list: supplement containing magnesium, D, B6 Review of Systems Review of systems same as previous: No (Osteoarthritis) Physical Exam Vital signs obtained and entered by: PAN JAMES Blood Pressure: 180/88 (left, was still drinking coffee) Cuff size: wrist Heart Rate: 84 O2 Saturation: 97 (with mask) Height: 5 ft 6 in Weight: 254 lb Body Mass Index: 41.0 BMI Classification: Morbidly Obese Impression and Plan 1. Obstructive Sleep Apnea-Hypopnea Syndrome, moderate, with good treatment compliance and goo apnea control with using her CPAP. On CPAP therapy, the patient has better sleep quality and is more rested overall. Patient heard about the recall on her device in March and stopped using it. She has not yet registered her device. Patient was encouraged to register their device online with [employer] for the recall to see if their device is affected. Phone number for [employer] given. If their device is affected they should start a claim. Patient denies any black particles seen in machine or hoses, any unusual odors coming from device. Patient has not experienced any physical symptoms such as upper airway irritation, headache, skin or eye irritation, asthma, nausea/vomiting, difficulty breathing or chest pain. If patient is not able to sleep due to waking up choking, gasping for air or other respiratory distress that they may decide to continue using it until it is either replaced or repaired. Patient may elevated head by 30 degrees to reduce apneas while she waits for replacement device. I also informed her of other options for treatment such as surgery, including Inspire therapy. Patient would like to explore this option. I will write a referral for evaluation for Inspire implantable therapy. Patient voiced understanding and agreement with plan. Patient's apnea severity and rationale for treatment to reduce apnea, improve sleep quality and reduce cardiovascular and cerebrovascular events was reviewed. Patient was also encouraged to lose weight for their overall health and to reduce apneas. * Continue auto CPAP pressure at 10-12 cmH2O when her CPAP is replaced * Referral for Inspire therapy evaluation * Notify me if snoring with mask or feeling that the pressure is too much or too little * Attempt to lose weight * Call this office if any problems using CPAP * Return for follow up in 1 year, or sooner if concerns arise Counseling Topics: Spare mask, Weight loss health impact Visit Type: In Office Time Spent with Patient (minutes): 23 Provider Statement: I spent 100% of the Face to Face Visit with the patient with greater than 50% spent counseling the patient and coordination of care.
[2021-06-15 10:27] VITALS: BP 180/88
== END 2021-06-15 09:42 | disposition home or self-care (01) ==
LOC: SC 09:41
PROVIDERS: ATTEND Nurse Practitioner Family
DX: G47.33 Obstructive sleep apnea (adult) (pediatric) (principal); E66.01 Morbid (severe) obesity due to excess calories; Z68.41 Body mass index [BMI] 40.0-44.9, adult
CPT/HCPCS: 99213; G0463; 99212

== ENCOUNTER 2021-07-04 15:25 | Emergency (ER) | payer MEDICARE, OTHER ==
--- NOTE | 2021-07-04 16:16 | ED Physician Documentation ---
PD HPI FOCAL NEURO - Stated complaint Stated Complaint: CONFUSION - Chief complaint Chief Complaint: Neuro - History obtained from History obtained from: Patient - Additional information Additional information: 70-year-old woman with history of sleep apnea on CPAP and hypothyroidism as well as migraines with neurologic symptoms. She laid down for nap which is not unusual but she was having some sinus congestion so this was preceded by taking a Benadryl and Aleve. When she woke up she was very confused and really could not figure out what was going on. She got up from her nap at about 1:15 PM. Most of her symptoms are resolved at this point. Her headache is much better. Review of Systems Constitutional: denies: Fever, Chills Nose: reports: Rhinorrhea / runny nose, Congestion Cardiac: denies: Chest pain / pressure, Palpitations Respiratory: denies: Dyspnea, Cough GI: denies: Nausea, Vomiting PD PAST MEDICAL HISTORY - Past Medical History Cardiovascular: Hypertension, Murmur Respiratory: Asthma, Sleep apnea Endocrine/Autoimmune: HyPOthyroidism GI: Colon polyps, Hepatitis, Other : Chronic bladder infection HEENT: Chronic vision loss, Chronic sinusitis Psych: None, Other Musculoskeletal: None Derm: None - Past Surgical History Past Surgical History: Yes General: Appendectomy, 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, LEEP (Cervical surgery) HEENT: Tonsil/Adenoidectomy - Present Medications Home Medications: Ambulatory Orders Medication Instructions Recorded Confirmed Levothyroxine [Synthroid] 175 mcg PO QDAC 02/18/16 05/01/21 - Allergies Allergies/Adverse Reactions: Allergies Allergy/AdvReac Type Severity Reaction Status Date / Time corn AdvReac gastric Verified 07/04/21 16:06 Penicillins AdvReac Itching Verified 07/04/21 16:06 Sulfa (Sulfonamide AdvReac Itching Verified 07/04/21 16:06 Antibiotics) - Social History Does the pt smoke?: No Smoking Status: Never smoker Does the pt drink ETOH?: Yes Does the pt have substance abuse?: No - Immunizations Immunizations are current?: Yes - POLST Patient has POLST: No PD ED PE NORMAL - Vitals Vital signs reviewed: Yes - General General: Alert and oriented X 3, No acute distress - HEENT HEENT: PERRL, EOMI - Neck Neck: Supple, no meningeal sign, No bony TTP - Neuro Neuro: Alert and oriented X 3, aircraft engine technician 2-12 intact, No motor deficit, No sensory deficit, Normal speech Eye Opening: Spontaneous Motor: Obeys Commands Verbal: Oriented GCS Score: 15 - Psych Psych: Normal mood, Normal affect NIHSS - Time Time: 16:10 - Level of Consciousness Level of consciousness: (0) Alert, Keenly responsive LOC Questions: (0) Answers both Q's correct LOC Commands: (0) Performs both correctly - Gaze Best Gaze: (0) Normal - Visual Visual: (0) No loss - Facial Palsy Facial Palsy: (0) Normal, symmetrical movement - Motor Arms (both separate) Motor Arm (right): (0) No drift Motor Arm (left): (0) No drift - Motor Legs (both separate) Motor Leg (right): (0) No drift Motor Leg (left): (0) No drift - Limb Ataxia Limb Ataxia: (0) Absent - Sensory Sensory: (0) Normal - Best Language Best Language: (0) No aphasia - Dysarthria Dysarthria: (0) Normal - Extinction and Inattention (formally neg Extinction and inattention: (0) No abnormality - Total Score/Results Total Score/Result: 0 Results - Vitals Vitals: Vital Signs - 24 hr 07/04/21 07/04/21 07/04/21 15:58 16:21 19:16 Temperature 36.9 C Heart Rate 91 88 89 Respiratory 16 20 20 Rate Blood Pressure 210/111 H 180/111 H O2 Saturation 97 96 97 07/04/21 07/04/21 07/04/21 19:45 21:19 22:05 Temperature Heart Rate 70 73 69 Respiratory 16 20 17 Rate Blood Pressure 183/109 H 160/108 H 180/99 H O2 Saturation 97 96 96 07/04/21 22:23 Temperature 36.8 C Heart Rate 65 Respiratory 16 Rate Blood Pressure 180/99 H O2 Saturation 97 Oxygen O2 Source Room air - EKG (time done) 1607 Rate: Rate (enter#) (82) Rhythm: NSR [place]: Normal Intervals: Normal [place] QRS: Normal Ischemia: Normal ST segments - Labs Labs: Laboratory Tests 07/04/21 07/04/21 16:16 16:16 WBC 10.7 RBC 5.50 H Hgb 16.9 H Hct 49.7 H MCV 90.4 MCH 30.7 MCHC 34.0 RDW 14.1 Plt Count 242 MPV 10.5 Neut # (Auto) 8.5 H Lymph # (Auto) 1.5 [place] # (Auto) 0.5 Eos # (Auto) 0.1 Baso # (Auto) 0.1 Absolute Nucleated RBC 0.00 Nucleated RBC % 0.0 Sodium 140 Potassium 3.8 Chloride 105 Carbon Dioxide 24 Anion Gap 11.0 BUN 24 H Creatinine 0.9 Estimated GFR (MDRD) 62 L Glucose 148 H Calcium 8.9 PD MEDICAL DECISION MAKING - ED course ED course: 70-year-old woman with An episode of confusion after waking up from a nap. She took benadryl prior to the nap and this is the likely cause. Her confusion is completely better now. We will perform a head CT and basic labs. Her head CT was read as a potential small area of subarachnoid hemorrhage and recommending a repeat in 4 hours or so. She had completely returned to normal. But understands the need for follow-up testing and care to the oncoming emergency department at shift change to follow-up and order a repeat head CT in a few hours. We discussed her high red cell counts and the need for follow-up with her physician for this. She notes that she was unable to be compliant with her CPAP for a while because of a recall and as such was getting hypoxic in the middle of the night. She is now again compliant with her CPAP so it may improve with just that. Departure - Departure Disposition: 01 Home, Self Care Clinical Impression: Confusion Condition: Good Record reviewed to determine appropriate education?: Yes Comments: As discussed, your red blood cell counts are high. This is not a brand-new phenomenon as you noted this was present on previously done labs in November of this year. It may be because you were able to use your CPAP machine for a while and narcotic getting hypoxic in the middle of the night but your doctor at the very least needs to recheck and if persistent he or she may want to send you to a operations dispatcher. Discharge Date/Time: 07/04/21 22:26
[2021-07-04 16:22] LABS: BASOPHILS # (AUTO) 0.1 10^3/uL (0.0-0.1); BASOPHILS % (AUTO) 0.7 %; EOSINOPHILS # (AUTO) 0.1 10^3/uL (0.0-0.7); EOSINOPHILS % (AUTO) 1.1 %; HCT - HEMATOCRIT 49.7 % (37.0-47.0); HGB - HEMOGLOBIN 16.9 g/dL (12.0-16.0); LYMPHOCYTES # (AUTO) 1.5 10^3/uL (1.5-3.5); LYMPHOCYTES % (AUTO) 13.7 %; MEAN CORPUSCULAR HEMOGLOBIN 30.7 pg (27.0-31.0); MEAN CORPUSCULAR VOLUME 90.4 fL (81.0-99.0); MEAN PLATELET VOLUME 10.5 fL (7.9-10.8); MONOCYTES # (AUTO) 0.5 10^3/uL (0.0-1.0); MONOCYTES % (AUTO) 4.6 %; NEUTROPHILS # (AUTO) 8.5 10^3/uL (1.5-6.6); NEUTROPHILS % (AUTO) 79.2 %; PLT - PLATELET COUNT 242 10^3/uL (130-450); RED CELL DISTRIBUTION WIDTH 14.1 % (12.0-15.0); WHITE BLOOD COUNT 10.7 x10^3/uL (4.8-10.8)
[2021-07-04 16:30] LABS: CALCIUM 8.9 mg/dL (8.5-10.3); CREATININE 0.9 mg/dL (0.4-1.0); POTASSIUM 3.8 mmol/L (3.5-5.0)
--- NOTE | 2021-07-04 18:02 | CT Report ---
PROCEDURE: HEAD WO INDICATIONS: Confusion TECHNIQUE: Noncontrast 4.5 mm thick angled axial sections acquired from the foramen magnum to the vertex. For r adiation dose reduction, the following was used: automated exposure control, adjustment of mA and/or kV according to patient size. COMPARISON: 11/30/2020. FINDINGS: Increased attenuation of the high right superior frontal gyrus (series 4 image 14 and series 3 image 24), nonspecific. This could potentially represent subtle subarachnoid hemorrhage or cortical laminar necrosis. The finding is new from the comparison study 11/30/2020. Small lacunar infarcts in the left basal ganglia and right centrum semiovale. Mild to moderate chroni c vascular ischemic changes. Otherwise normal brain parenchymal attenuation. Global cerebral volume l oss. No abnormal extra-axial fluid collection. No findings of mass effect or midline shift. Normal ventric ular caliber and position. Basilar cisterns. Regional osseous structures unremarkable. No gross orbital abnormality. IMPRESSION: Increased attenuation in the high right superior frontal gyrus is nonspecific, potential ly subtle subarachnoid hemorrhage or cortical laminar necrosis. This could potentially represent volu me averaging artifact, although the finding is new from the comparison study. Short interval follow-u p study in 4-6 hours would help differentiate. Reviewed by: Mj Gasca MD on 07/04/2021 6:01 PM PST Approved by: Mj Gasca MD on 07/04/2021 6:01 PM PST Station ID: [id number]
[2021-07-04 22:06] VITALS: BP 180/99
--- NOTE | 2021-07-04 22:07 | CT Report ---
PROCEDURE: HEAD WO INDICATIONS: Possible SAH on prior CT TECHNIQUE: Noncontrast 4.5 mm thick angled axial sections acquired from the foramen magnum to the vertex. For r adiation dose reduction, the following was used: automated exposure control, adjustment of mA and/or kV according to patient size. COMPARISON: Same-day head CT FINDINGS: Previously seen hyperdensity associated with the right superior frontal gyrus immediately adjacent to the inner table of the skull is no longer present, suggesting that the prior abnormality was due to volume averaging. There is no evidence of acute intracranial hemorrhage or abnormal extra-axial fluid collection. No findings of mass effect or midline shift. Normal ventricular caliber and position. Ba silar cisterns are patent. Mild global cerebral volume loss and chronic microvascular ischemic change s are similar. Small lacunar infarcts redemonstrated. IMPRESSION: No acute intracranial hemorrhage. Previously seen hyperdensity associated with the right superior frontal lobe gyrus is consistent was due to volume averaging artifact on the prior study. Reviewed by: Mj Gasca MD on 07/04/2021 10:06 PM PST Approved by: Mj Gasca MD on 07/04/2021 10:06 PM PST Station ID: [id number]
--- NOTE | 2021-07-04 22:14 | ED Physician Documentation ---
ED Addendum - Addendum Addendum: 07/04/21 22:12 Patient endorsed to me by Dr. Grimlado - CT repeat head with no signs of SAH, confirming volume averaging artifact on previous CT. patient well appearing, AOX4 with normal neuro exam. Return precautions discussed. plan to f/u with pmd. Disposition home Condition stable Impression 1. confusion, resolved 07/04/21 23:39
== END 2021-07-04 22:26 | disposition home or self-care (01) ==
LOC: ED 15:25
DX: R41.0 Disorientation, unspecified (principal); I10 Essential (primary) hypertension; R71.8 Other abnormality of red blood cells
CPT/HCPCS: 36415; 80048; 85025; 93005; 99282; 99284

== ENCOUNTER 2021-07-10 08:00 | Outpatient (CLI) | payer MEDICARE, OTHER ==
[2021-07-10 17:34] LABS: BASOPHILS # (AUTO) 0.1 10^3/uL (0.0-0.1); BASOPHILS % (AUTO) 0.8 %; EOSINOPHILS # (AUTO) 0.2 10^3/uL (0.0-0.7); EOSINOPHILS % (AUTO) 2.4 %; HCT - HEMATOCRIT 50.7 % (37.0-47.0); HGB - HEMOGLOBIN 16.9 g/dL (12.0-16.0); LYMPHOCYTES % (AUTO) 22.5 %; MEAN CORPUSCULAR HEMOGLOBIN 30.5 pg (27.0-31.0); MEAN CORPUSCULAR HGB CONC 33.3 g/dL (32.0-36.0); MEAN CORPUSCULAR VOLUME 91.5 fL (81.0-99.0); MEAN PLATELET VOLUME 11.6 fL (7.9-10.8); MONOCYTES # (AUTO) 0.5 10^3/uL (0.0-1.0); MONOCYTES % (AUTO) 5.9 %; NEUTROPHILS % (AUTO) 67.7 %; PLT - PLATELET COUNT 217 10^3/uL (130-450); RED BLOOD COUNT 5.54 10^6/uL (4.20-5.40); RED CELL DISTRIBUTION WIDTH 14.3 % (12.0-15.0); WHITE BLOOD COUNT 8.9 x10^3/uL (4.8-10.8)
== END 2021-07-10 23:59 ==
LOC: LAB.R 08:00
PROVIDERS: ATTEND Internal Medicine
DX: R53.83 Other fatigue (principal); E03.9 Hypothyroidism, unspecified
CPT/HCPCS: 84443; 85025

== ENCOUNTER 2021-08-29 16:05 | Outpatient (CLI) | payer MEDICARE, OTHER | END 2021-08-29 16:06 | disposition home or self-care (01) | LOC: LAB.R 16:05 | PROVIDERS: ATTEND Internal Medicine | DX: Z01.812 Encounter for preprocedural laboratory examination (principal); E03.9 Hypothyroidism, unspecified; Z20.822 Contact with and (suspected) exposure to COVID-19 | CPT/HCPCS: 84443; U0004 ==

== ENCOUNTER 2021-09-14 10:42 | Outpatient (CLI) | payer MEDICARE, OTHER ==
[2021-09-14] MEDS ORDERED: IOVERSOL 320 100 ML VIAL IVP ONE ×2 (11:32→17:42)
--- NOTE | 2021-09-14 16:49 | CT Report ---
PROCEDURE: ANGIO HEAD W/WO INDICATIONS: LACUNAR INFARCTION CONTRAST: IV CONTRAST: Optiray 320 ml: 80 PO CONTRAST TECHNIQUE: Precontrast 4.5 mm thick angled axial sections acquired from the foramen magnum to the vertex. Afte r the administration of intravenous contrast, 1 mm thick sections acquired through the [place] of [place] is. Postcontrast 4.5 mm thick sections then re-acquired from the foramen magnum to the vertex. 3-di mensional cdcdmsr-bagmiautm-ecgktesymx (MIP) and/or volume rendering reformats were acquired of the c entral intracranial vasculature. For radiation dose reduction, the following was used: automated ex posure control, adjustment of mA and/or kV according to patient size. COMPARISON: 07/04/2021. FINDINGS: Image quality: Excellent. Anterior circulation: Intracranial internal carotid arteries are normal in size and flow. The flow within the paired anterior cerebral arteries is normal and symmetric. The flow within the middle cer ebral arteries is normal and symmetric. The anterior communicating artery is seen. No aneurysms are seen. Posterior circulation: Visualized portions of the vertebral arteries demonstrate normal caliber, and join to form a normal appearing basilar artery. Flow within the posterior cerebral arteries is norm al and symmetric. No aneurysms are seen. Dural sinuses demonstrate normal postcontrast enhancement. CSF spaces: Ventricles are normal in size and shape. Basal cisterns are patent. No extra-axial flu id collections. Brain: Small chronic lacunar infarct involving the left basal ganglia/left ruiz radiata is stable. Falcine dural ossification centers are stable. No midline shift. No intracranial bleeds or masses. [place]-white matter interface appears intact. Skull and face: Calvarium and facial bones appear intact, without suspicious lesions. Sinuses: Visualized sinuses and mastoids are clear. IMPRESSION: 1. No acute intracranial disease process. 2. No large vessel occlusion, hemodynamically significant vascular stenosis, vascular dissection or a neurysm. Reviewed by: Edwina Gabriel MD, PhD on 09/14/2021 4:47 PM PST Approved by: Edwina Gabriel MD, PhD on 09/14/2021 4:47 PM PST Station ID: [id number]
--- NOTE | 2021-09-14 16:56 | CT Report ---
PROCEDURE: ANGIO NECK W INDICATIONS: LACUNAR INFARCTION CONTRAST: IV CONTRAST: Optiray 320 ml: 80 PO CONTRAST: *NO PO CONTRAST TECHNIQUE: After the administration of intravenous contrast, 1.5 mm axial sections acquired from the aortic arch to the [place] of [place]. Coronal 3-D maximum intensity projection (MIP) and/or volume rendering ref ormats were then performed. For radiation dose reduction, the following was used: automated exposur e control, adjustment of mA and/or kV according to patient size. COMPARISON: None. FINDINGS: Image quality: Excellent. Carotid system: The great vessels demonstrate a conventional anatomy as they arise from the aortic a [facility]. The origins of the common carotid arteries appear patent. The common carotid arteries demonstr ate normal calibers. Distal common carotid arteries and proximal internal carotid arteries all medial course projecting into the retropharyngeal space. Minimal atelectatic plaque noted in the origins of the internal carotid arteries which does not cause measurable stenosis. Posterior circulation: The origins of the vertebral arteries appear patent. 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 The more superior portions of the vertebral arteries demonstrate normal caliber. The 2 segment of the left vertebral artery follows a medial course projecting into the retropharyngeal space at the level of the right vertebral body. They join to form a normal appearing basilar artery. Soft tissues: Visualized neck soft tissues demonstrate no suspicious abnormalities. Right lobe of th e thyroid gland is enlarged. Multiple hypoattenuating nodule is noted in the thyroid gland. Largest n odules in the right lobe and measures approximately 2.6 cm in maximum diameter. Bones: No suspicious bony lesions. Visualized cervical spine appears normally aligned. Spine degenerative disc disease a nd facet arthropathy are noted. IMPRESSION: 1. No vascular occlusion, hemodynamically significant vascular stenosis, best or dissection or aneury sm. 2. Multiple thyroid nodules. Largest nodule measures 2.6 cm and is in the right lobe. Recommend thyro id ultrasound for definitive characterization. The estimate of stenosis included in the report of the imaging study was calculated using the NASCET method Reviewed by: Edwina Gabriel MD, PhD on 09/14/2021 4:55 PM PST Approved by: Edwina Gabriel MD, PhD on 09/14/2021 4:55 PM PST Station ID: [id number]
== END 2021-09-14 10:43 | disposition home or self-care (01) ==
LOC: DI 10:42
PROVIDERS: ATTEND Psychiatry & Neurology Neurology
DX: I63.81 Other cerebral infarction due to occlusion or stenosis of small artery (principal); R41.0 Disorientation, unspecified; E04.2 Nontoxic multinodular goiter
CPT/HCPCS: 36415; 70496; 70498; 82565; Q9967

== ENCOUNTER 2022-02-06 13:08 | Outpatient (CLI) | payer MEDICARE, OTHER ==
[2022-02-06 13:35] LABS: CHOL/HDL RATIO 6.3 (<4.4); CHOLESTEROL 222 mg/dL; HDL CHOLESTEROL 35 mg/dL; LDL CHOLESTEROL,CALCULATED 132 mg/dL; LDL/HDL RATIO 3.8 (<4.4); TRIGLYCERIDES 273 mg/dL; VLDL CHOLESTEROL 55 mg/dL
== END 2022-02-06 13:09 | disposition home or self-care (01) ==
LOC: LAB 13:08
PROVIDERS: ATTEND Psychiatry & Neurology Neurology
DX: I63.81 Other cerebral infarction due to occlusion or stenosis of small artery (principal)
CPT/HCPCS: 36415; 80061; 83721

== ENCOUNTER 2022-06-11 08:00 | Outpatient (CLI) | payer MEDICARE, OTHER ==
[2022-06-11 16:20] LABS: BASOPHILS # (AUTO) 0.1 10^3/uL (0.0-0.1); BASOPHILS % (AUTO) 0.9 %; EOSINOPHILS # (AUTO) 0.2 10^3/uL (0.0-0.7); EOSINOPHILS % (AUTO) 2.7 %; HCT - HEMATOCRIT 49.3 % (37.0-47.0); HGB - HEMOGLOBIN 16.4 g/dL (12.0-16.0); LYMPHOCYTES # (AUTO) 1.8 10^3/uL (1.5-3.5); LYMPHOCYTES % (AUTO) 21.1 %; MEAN CORPUSCULAR HGB CONC 33.3 g/dL (32.0-36.0); MEAN CORPUSCULAR VOLUME 90.1 fL (81.0-99.0); MEAN PLATELET VOLUME 11.3 fL (7.9-10.8); MONOCYTES # (AUTO) 0.5 10^3/uL (0.0-1.0); MONOCYTES % (AUTO) 5.6 %; NEUTROPHILS # (AUTO) 5.9 10^3/uL (1.5-6.6); NEUTROPHILS % (AUTO) 69.3 %; PLT - PLATELET COUNT 238 10^3/uL (130-450); RED BLOOD COUNT 5.47 10^6/uL (4.20-5.40); RED CELL DISTRIBUTION WIDTH 13.6 % (12.0-15.0); WHITE BLOOD COUNT 8.5 x10^3/uL (4.8-10.8)
[2022-06-11 16:28] LABS: BILIRUBIN,URINE NEGATIVE (NEGATIVE); GLUCOSE, URINE (UA) NEGATIVE (NEGATIVE); KETONES,URINE (UA) NEGATIVE (NEGATIVE); LEUKOCYTE ESTERASE, URINE NEGATIVE (NEGATIVE); NITRITE,URINE NEGATIVE (NEGATIVE); OCCULT BLOOD,URINE SMALL (NEGATIVE); PROTEIN,URINE NEGATIVE (NEGATIVE); UROBILINOGEN,URINE 0.2 (NORMAL) E.U./dL (NORMAL)
[2022-06-11 16:37] LABS: CLARITY,URINE CLEAR (CLEAR)
[2022-06-11 16:38] LABS: ALBUMIN 3.7 g/dL (3.2-5.5); ALBUMIN/GLOBULIN RATIO 1.1 (1.0-2.2); ALKALINE PHOSPHATASE 69 IU/L (42-121); ALT ALANINE AMINOTRANSFERASE 47 IU/L (10-60); AST ASPARTATE AMINOTRANSFERASE 29 IU/L (10-42); BILIRUBIN,TOTAL 0.8 mg/dL (0.2-1.0); BUN - BLOOD UREA NITROGEN 21 mg/dL (6-20); CALCIUM 8.7 mg/dL (8.5-10.3); CARBON DIOXIDE - CO2 25 mmol/L (21-32); CHLORIDE 102 mmol/L (101-111); CHOL/HDL RATIO 6.4 (<4.4); CHOLESTEROL 225 mg/dL; CREATININE 0.9 mg/dL (0.4-1.0); GFR - MDRD 62 (>89); GLUCOSE 149 mg/dL (70-100); HDL CHOLESTEROL 35 mg/dL; LDL CHOLESTEROL,CALCULATED 156 mg/dL; LDL/HDL RATIO 4.5 (<4.4); POTASSIUM 4.1 mmol/L (3.5-5.0); SODIUM 139 mmol/L (135-145); TOTAL PROTEIN 7.1 g/dL (6.7-8.2); TRIGLYCERIDES 170 mg/dL; VLDL CHOLESTEROL 34 mg/dL
[2022-06-11 16:48] LABS: BACTERIA,URINE None Seen /HPF (None Seen); RBC,URINE 0-5 /HPF (0-5); SQUAMOUS EPITHELIAL CELL,UR FEW Squamous (<= Few); WBC,URINE 0-3 /HPF (0-5)
[2022-06-11 20:10] LABS: ESTIMATED AVERAGE GLUCOSE 160 mg/dL (70-100); HEMOGLOBIN A1c% 7.2 % (4.27-6.07)
== END 2022-06-11 23:59 | disposition home or self-care (01) ==
LOC: LAB.R 08:00
PROVIDERS: ATTEND Internal Medicine
DX: Z00.00 Encounter for general adult medical examination without abnormal findings (principal); R07.9 Chest pain, unspecified; R74.8 Abnormal levels of other serum enzymes; K76.0 Fatty (change of) liver, not elsewhere classified; R51.9 Headache, unspecified; Z86.010 Personal history of colon polyps; E78.5 Hyperlipidemia, unspecified; E03.9 Hypothyroidism, unspecified; R73.01 Impaired fasting glucose; I63.9 Cerebral infarction, unspecified; G47.33 Obstructive sleep apnea (adult) (pediatric); N39.41 Urge incontinence
CPT/HCPCS: 80053; 80061; 81001; 81003; 83036; 83721; 84443; 85025; 87086

== ENCOUNTER 2022-08-09 09:55 | Outpatient (CLI) | payer MEDICARE, OTHER | END 2022-08-09 09:56 | disposition home or self-care (01) | LOC: NS 09:55 | PROVIDERS: ATTEND Internal Medicine | DX: E11.9 Type 2 diabetes mellitus without complications (principal); Z71.3 Dietary counseling and surveillance; Z71.89 Other specified counseling; Z68.41 Body mass index [BMI] 40.0-44.9, adult | CPT/HCPCS: 97803 ==

== ENCOUNTER 2023-02-13 13:52 | Outpatient (CLI) | payer MEDICARE, OTHER ==
[2023-02-13 14:06] LABS: HCT - HEMATOCRIT 46.5 % (37.0-47.0); HGB - HEMOGLOBIN 15.7 g/dL (12.0-16.0); MEAN CORPUSCULAR HEMOGLOBIN 31.2 pg (27.0-31.0); MEAN CORPUSCULAR HGB CONC 33.8 g/dL (32.0-36.0); MEAN CORPUSCULAR VOLUME 92.3 fL (81.0-99.0); MEAN PLATELET VOLUME 10.5 fL (7.9-10.8); RED BLOOD COUNT 5.04 10^6/uL (4.20-5.40); RED CELL DISTRIBUTION WIDTH 14.9 % (12.0-15.0); WHITE BLOOD COUNT 7.4 x10^3/uL (4.8-10.8)
[2023-02-13 14:20] LABS: ALBUMIN 4.1 g/dL (3.2-5.5); ALBUMIN/GLOBULIN RATIO 1.8 (1.0-2.2); BILIRUBIN,TOTAL 0.5 mg/dL (0.2-1.0); CALCIUM 9.2 mg/dL (8.5-10.3); CREATININE 1.1 mg/dL (0.6-1.3); POTASSIUM 4.1 mmol/L (3.5-4.5); TOTAL PROTEIN 6.4 g/dL (6.4-8.9)
== END 2023-02-13 13:53 | disposition home or self-care (01) ==
LOC: LAB 13:52
PROVIDERS: ATTEND Internal Medicine Cardiovascular Disease
DX: I48.0 Paroxysmal atrial fibrillation (principal)
CPT/HCPCS: 36415; 80053; 85027

== ENCOUNTER 2023-10-22 01:20 | Emergency (ER) | payer MEDICARE, OTHER ==
--- NOTE | 2023-10-22 01:22 | ED Physician Documentation ---
PD HPI CHEST PAIN - Stated complaint Stated Complaint: CHEST PX - History obtained from History obtained from: Patient - Additional information Additional information: HPI from patient. Patient complains of approximately 3 days of epigastric pain that has gradually radiated, bandlike, around both flanks as well as up midline chest to her throat. She has had episodic nausea but no vomiting. She denies shortness of breath. She denies history of similar symptoms. She also notes generalized headache that developed this evening. Her only cardiac history is atrial fibrillation; her medication list includes Eliquis. She says she had a chemical stress test approximately 8 months ago (March 2023) without concerning findings/results. Regarding tonight's symptoms, there are no exacerbating nor ameliorating factors. Review of Systems Constitutional: denies: Fever, Chills, Sweats Cardiac: reports: Chest pain / pressure. denies: Palpitations, Pedal edema, Calf pain Respiratory: denies: Dyspnea, Cough GI: reports: Nausea. 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, LEEP (Cervical surgery) HEENT: Tonsil/Adenoidectomy - Present Medications Home Medications: Ambulatory Orders Medication Instructions Recorded Confirmed Levothyroxine [Synthroid] 175 mcg PO QDAC 02/18/16 10/22/23 Apixaban [Eliquis] 5 mg PO BID 10/22/23 10/22/23 Flecainide [Tambocar] 100 mg PO BID 10/22/23 10/22/23 Magnesium Citrate and Oxide 1 cap PO DAILY 10/22/23 10/22/23 [Magnesium] Metoprolol Succinate [Toprol Xl] 25 mg PO DAILY 10/22/23 10/22/23 Multivitamin 1 tab PO DAILY 10/22/23 10/22/23 Omeprazole 20 mg PO DAILY 10/22/23 10/22/23 Vitamin E 1 cap PO DAILY 10/22/23 10/22/23 oxyBUTYnin chloride [Oxybutynin 5 mg PO BID 10/22/23 10/22/23 Chloride] - Allergies Allergies/Adverse Reactions: Allergies Allergy/AdvReac Type Severity Reaction Status Date / Time corn AdvReac gastric Verified 10/22/23 01:42 Penicillins AdvReac Itching Verified 10/22/23 01:42 Sulfa (Sulfonamide AdvReac Itching Verified 10/22/23 01:42 Antibiotics) - Social History Does the pt smoke?: No Smoking Status: Never smoker Does the pt drink ETOH?: Yes Does the pt have substance abuse?: No - Immunizations Immunizations are current?: Yes - POLST Patient has POLST: No PD ED PE NORMAL - Vitals Vital signs reviewed: Yes - General General: Alert and oriented X 3, No acute distress, Well developed/nourished - Neck Neck: Supple, no meningeal sign - Cardiac Cardiac: RRR, No murmur, Other (frequent extra beats (correlate with PACs on health spa manager)) - Respiratory Respiratory: No respiratory distress, Clear bilaterally - Abdomen Abdomen: Normal bowel sounds, Soft, Non tender, Non distended - Derm Derm: Normal color - Extremities Extremities: No edema Results - Vitals Vitals: Vital Signs - 24 hr 10/22/23 10/22/23 10/22/23 01:22 01:45 03:05 Temperature 36.9 C Heart Rate 79 78 87 Respiratory 16 18 Rate Blood Pressure 180/94 H 137/87 H O2 Saturation 97 98 Oxygen O2 Source Room air - EKG (time done) No standard instances EKG releavant findings:: EKG personally interpreted by author of this note. Relevant findings are: Rate: Rate (enter#) (69) Rhythm: NSR [place]: Normal Intervals: Normal [place] QRS: Normal Ischemia: Normal ST segments, T wave inversion (III, biphasic aVF) - Labs Labs: Laboratory Tests 10/22/23 10/22/23 10/22/23 01:28 01:28 01:28 WBC 14.4 H RBC 5.47 H Hgb 16.6 H Hct 50.3 H MCV 92.0 MCH 30.3 MCHC 33.0 RDW 13.7 Plt Count 232 MPV 10.4 Neut # (Auto) 11.3 H Lymph # (Auto) 1.8 [place] # (Auto) 1.1 H Eos # (Auto) 0.1 Baso # (Auto) 0.1 Absolute Nucleated RBC 0.00 Nucleated RBC % 0.0 Sodium 135 Potassium 4.1 Chloride 103 Carbon Dioxide 25 Anion Gap 7.0 BUN 16 Creatinine 1.0 Estimated GFR (MDRD) 54 L Glucose 193 H Calcium 9.5 Total Bilirubin 0.6 AST 15 ALT 26 Alkaline Phosphatase 59 Troponin I High Sens 4.8 Total Protein 7.2 Albumin 4.1 Globulin 3.1 Albumin/Globulin Ratio 1.3 Lipase 29 - Rads (name of study) chest xray Relevant Findings:: Prelim report reviewed, See rad report PD Medical Decision Making - ED course Complexity details: reviewed results, re-evaluated patient, considered differential, d/w patient ED course: No concerning or diagnostic findings on tonight's tests. Mild leukocytosis noted (14.4), and mildly elevated hemoglobin (16.6). Normal platelets. The mildly elevated hemoglobin is comparable to some of her previous results. The mild leukocytosis is likely an incidental finding. Also noted is hyperglycemia (193); she is not diabetic. Normal high-sensitivity troponin (4.8). Unremarkable chest x-ray, and no concerning findings on EKG. I discussed these results with the patient. The cause of her symptoms is not apparent at this time. On reevaluation, she says she is already feeling much improved without any specific intervention. Advised her to follow-up with her primary care provider, next available appointment, for reevaluation. Further testing might be indicated even if her symptoms do not recur. Differential diagnosis would include GERD; patient says she has an appointment with a public safety telecommunicator within the next few weeks. In discussing the results of tonight's tests, I also pointed out the high blood sugar and advised her to mention this to her primary care provider for reevaluation. Departure - Departure Disposition: 01 Home, Self Care Clinical Impression: Chest pain Condition: Good Instructions: ED Chest Pain Atypical Unkn Cause Follow-Up: Umm Carreon MD [Primary Care Provider] - Comments: There were no concerning nor diagnostic findings on tonight's test, including the EKG, blood tests, and chest x-ray. The cause of your symptoms is not apparent at this time. As we discussed, your white blood cell count was mildly elevated (14.4). You also had a mild elevation in your red blood cell level (hemoglobin 16.6). Your blood sugar was high (193). None of these abnormalities would account for your symptoms, but you should mention them to your primary care provider when you next follow-up with them. Forms: PCP List Discharge Date/Time: 10/22/23 03:06
[2023-10-22 01:46] LABS: BASOPHILS # (AUTO) 0.1 10^3/uL (0.0-0.1); BASOPHILS % (AUTO) 0.4 %; EOSINOPHILS # (AUTO) 0.1 10^3/uL (0.0-0.7); EOSINOPHILS % (AUTO) 0.4 %; HCT - HEMATOCRIT 50.3 % (37.0-47.0); HGB - HEMOGLOBIN 16.6 g/dL (12.0-16.0); LYMPHOCYTES # (AUTO) 1.8 10^3/uL (1.5-3.5); LYMPHOCYTES % (AUTO) 12.7 %; MEAN CORPUSCULAR HEMOGLOBIN 30.3 pg (27.0-31.0); MEAN PLATELET VOLUME 10.4 fL (7.9-10.8); MONOCYTES # (AUTO) 1.1 10^3/uL (0.0-1.0); MONOCYTES % (AUTO) 7.3 %; NEUTROPHILS # (AUTO) 11.3 10^3/uL (1.5-6.6); NEUTROPHILS % (AUTO) 78.7 %; PLT - PLATELET COUNT 232 10^3/uL (130-450); RED BLOOD COUNT 5.47 10^6/uL (4.20-5.40); RED CELL DISTRIBUTION WIDTH 13.7 % (12.0-15.0); WHITE BLOOD COUNT 14.4 x10^3/uL (4.8-10.8)
[2023-10-22 02:04] LABS: ALBUMIN 4.1 g/dL (3.2-5.5); ALBUMIN/GLOBULIN RATIO 1.3 (1.0-2.2); BILIRUBIN,TOTAL 0.6 mg/dL (0.2-1.0); CALCIUM 9.5 mg/dL (8.5-10.3); POTASSIUM 4.1 mmol/L (3.5-4.5); TOTAL PROTEIN 7.2 g/dL (6.4-8.9)
[2023-10-22 03:14] VITALS: BP 137/87; O2SAT 98
--- NOTE | 2023-10-22 08:25 | XRAY Report ---
PROCEDURE: Chest 2V INDICATIONS: chest pain TECHNIQUE: 2 views of the chest were acquired. COMPARISON: None. FINDINGS: Surgical changes and devices: None. Lungs and pleura: No pleural effusions or pneumothorax. Lungs are clear. Mediastinum: Mediastinal contours appear normal. Heart size is normal. Bones and chest wall: No suspicious bony lesions. Overlying soft tissues appear unremarkable. IMPRESSION: No acute cardiopulmonary process. Reviewed by: Celestina Chambers MD, PhD on 10/22/2023 8:24 AM PDT Approved by: Celestina Chambers MD, PhD on 10/22/2023 8:24 AM PDT Station ID: [id number]
== END 2023-10-22 03:06 | disposition home or self-care (01) ==
LOC: ED 01:20
DX: R07.9 Chest pain, unspecified (principal); I48.91 Unspecified atrial fibrillation; Z79.01 Long term (current) use of anticoagulants; I10 Essential (primary) hypertension; E03.9 Hypothyroidism, unspecified; Z86.010 Personal history of colon polyps; Z79.899 Other long term (current) drug therapy
CPT/HCPCS: 36415; 80053; 83690; 84484; 85025; 93005; 99283; 99284

== ENCOUNTER 2023-11-13 08:54 | Day surgery (SDC) | payer MEDICARE, OTHER ==
[2023-11-13] MEDS: LACTATED RINGERS 1,000 ML IV ONE ×2 (09:34→10:27)
--- NOTE | 2023-11-13 09:58 | ANESTHESIA ---
Pre-Anesthesia VS, & Labs - Diagnosis dysphagia - Procedure EGD Vital Signs: Temp Pulse Resp BP Pulse Ox O2 Flow Rate 36.1 C L 57 L 16 132/63 H 95 11/13/23 09:42 11/13/23 09:42 11/13/23 09:42 11/13/23 09:42 11/13/23 09:42 Height: 5 ft 6 in Weight (kg): 119 kg Body Mass Index: 42.3 BMI Classification: Morbidly Obese - NPO >8 hours - Is Patient ?: No Home Medications and Allergies Levothyroxine [Synthroid] 175 mcg PO QDAC 02/18/16 Apixaban [Eliquis] 5 mg PO BID 10/22/23 Flecainide [Tambocar] 100 mg PO BID 10/22/23 Magnesium Citrate and Oxide [Magnesium] 1 cap PO DAILY 10/22/23 Metoprolol Succinate [Toprol Xl] 25 mg PO DAILY 10/22/23 Multivitamin 1 tab PO DAILY 10/22/23 oxyBUTYnin chloride [Oxybutynin Chloride] 5 mg PO BID 10/22/23 Allergies/Adverse Reactions: Allergies Allergy/AdvReac Type Severity Reaction Status Date / Time corn AdvReac gastric Verified 10/22/23 01:42 Penicillins AdvReac Itching Verified 10/22/23 01:42 Sulfa (Sulfonamide AdvReac Itching Verified 10/22/23 01:42 Antibiotics) Anes History & Medical History - Anesthetic History Anesthesia Complications: reports: No previous complications Family history of Anesthesia Complications: Denies Family history of Malignant Hyperthermia: Denies - Medical History Cardiovascular: reports: Hypertension, Atrial fibrillation, Murmur Pulmonary: reports: Asthma, Sleep apnea Gastrointestinal: reports: Colon polyps, Hepatitis, Other Urinary: reports: Chronic bladder infection Neuro: reports: None Musculoskeletal: reports: None Endocrine/Autoimmune: reports: HyPOthyroidism Blood Disorders: reports: None Skin: reports: None Smoking Status: Never smoker Psychosocial: reports: No issues indicated History of Cancer?: No - Surgical History General: reports: Appendectomy, Colonoscopy Eyes Ears Nose Throat (EENT): reports: Tonsil/Adenoidectomy Gynecologic: reports: Hysterectomy, LEEP (Cervical surgery) Exam General: Alert, Oriented x3, Cooperative Dental: WNL Thyromental Distance: 4-6 cm Respiratory: Lungs clear Cardiovascular: Regular rate Plan Anesthesia Type: General, Total IV Consent for Procedure(s) Verified and Reviewed: Yes Code Status: Attempt Resuscitation ASA classification: 3-Severe systemic disease Is this case an emergency?: No
[2023-11-13] MEDS ORDERED: LIDOCAINE-MPF 2% 5 ML VIAL ONE (10:08)
[2023-11-13] MEDS ORDERED: PROPOFOL 200 MG/20 ML VIAL IVP ONE (10:08)
[2023-11-13 10:54] VITALS: BP 123/73; O2SAT 96
== END 2023-11-13 08:55 | disposition home or self-care (01) ==
LOC: SDS 08:54
PROVIDERS: ATTEND Surgery
PROC: 0DB28ZX Excision of Middle Esophagus, Via Natural or Artificial Opening Endoscopic, Diagnostic (ICD-10-PCS; 2023-11-13)
PROC: 0DB38ZX Excision of Lower Esophagus, Via Natural or Artificial Opening Endoscopic, Diagnostic (ICD-10-PCS; principal; 2023-11-13 10:30)
DX: R10.13 Epigastric pain (principal); R13.10 Dysphagia, unspecified; R12 Heartburn; E66.01 Morbid (severe) obesity due to excess calories; Z68.41 Body mass index [BMI] 40.0-44.9, adult; I48.91 Unspecified atrial fibrillation; I10 Essential (primary) hypertension; G47.33 Obstructive sleep apnea (adult) (pediatric)
CPT/HCPCS: 43239; J7120

== ENCOUNTER 2023-11-24 07:05 | Outpatient (CLI) | payer MEDICARE, OTHER ==
--- NOTE | 2023-11-24 17:04 | Ultrasound Report ---
PROCEDURE: Abdomen Limited INDICATIONS: EPIGASTRIC PAIN TECHNIQUE: Real-time focused scanning was performed of the abdomen, with image documentation. COMPARISONS: None. FINDINGS: Liver: Liver is borderline-enlarged and measures 17.1 cm in length. Increased liver parenchymal echo texture is seen. 1 x 1 x 0.9 cm anechoic focus is noted in left hepatic lobe medial segment and show no internal vascularity. Gallbladder: No gallstones, sludge, wall thickening or pericholecystic edema. Biliary ducts: Intrahepatic bile ducts are non-dilated. Extrahepatic bile duct caliber measures 4 m m. Normal is 6-7 mm or less in diameter, or 10 mm or less post-cholecystectomy. Pancreas: Visualized portions of the pancreas are sonographically normal. Right kidney: Normal in size and echotexture. Right kidney measures 9.9 cm long. No hydronephrosis o r nephrolithiasis. No solid masses. No complex renal cystic lesions which require follow-up. IVC: Intrahepatic inferior vena cava is patent. Miscellaneous: No free abdominal fluid. IMPRESSION: 1. Borderline hepatomegaly and hepatic steatosis. Tiny 1 cm cyst in left hepatic lobe. No gross solid -appearing hepatic lesion. 2. The rest of the exam is unremarkable. Reviewed by: Damon Gibson MD on 11/24/2023 5:03 PM PDT Approved by: Damon Gibson MD on 11/24/2023 5:03 PM PDT Station ID: [id number]
== END 2023-11-24 07:06 | disposition home or self-care (01) ==
LOC: DI 07:05
PROVIDERS: ATTEND Surgery
DX: K76.0 Fatty (change of) liver, not elsewhere classified (principal); K76.89 Other specified diseases of liver; R10.13 Epigastric pain

== ENCOUNTER 2024-01-05 11:22 | Outpatient (CLI) | payer MEDICARE, OTHER ==
--- NOTE | 2024-01-05 13:18 | CT Report ---
PROCEDURE: Abdomen/Pelvis W INDICATIONS: ABDOINAL PAIN, CONSTIPATION CONTRAST: Omni 300 100ml TECHNIQUE: After the administration of intravenous contrast, a CT scan of the abdomen and pelvis was performed. Images were recorded and evaluated at appropriate window settings. Reformats: coronal and sagittal. F or radiation dose reduction, the following was used: automated exposure control, adjustment of mA and /or kV according to patient size. COMPARISON: Ultrasound abdomen 11/24/2023 FINDINGS: Image quality: Diagnostic. Lower chest: Unremarkable. Liver: No solid mass. Hepatic steatosis is present. Liver measures 19.4 cm. Simple medial hepatic cys t. Gallbladder: Biliary tree: No intrahepatic or extrahepatic dilation, accounting for age. Spleen: No splenomegaly. Pancreas: No pancreatic ductal dilation. Adrenals: No adrenal nodule. Kidneys and ureters: No hydronephrosis. No renal cystic lesion which requires follow up. No solid mas s. Stomach, bowel and peritoneum: No gastric or small bowel dilation. No abnormal wall thickening. No pa thologic free fluid. Colonic diverticula are present. There is thickening and inflammatory change iveth rounding the distal sigmoid colon. No abscess or free air. Lymph nodes: No central or retroperitoneal adenopathy. Vessels: No infrarenal aortic aneurysm. Patent portal vein. PELVIS Reproductive organs: Unremarkable. Bladder: No abnormal wall thickening, accounting for underdistention. Pelvic lymph nodes: No pelvic adenopathy by size criteria. Bones: No aggressive osseous abnormality. Other: Small ventral fat-containing hernia. No inguinal hernia. IMPRESSION: Distal sigmoid thickening with inflammatory change most consistent with focal colitis secondary to di verticulitis. No abscess. As clinically indicated, further follow-up may be obtained after appropriat e therapy to document resolution and exclude presence of underlying mass. No proximal obstruction. Reviewed by: Sanjuana Muñoz MD on 01/05/2024 1:17 PM PDT Approved by: Sanjuana Muñoz MD on 01/05/2024 1:17 PM PDT Station ID: [id number]
[2024-01-05] MEDS: iohexoL-300 100 ML VIAL IVP ONE (14:38)
[2024-01-05] MEDS: DIATRIZOATE MEGLU/DIATRIZO SOD 30 ML BOTTLE PO ONE (14:38)
== END 2024-01-05 11:23 | disposition home or self-care (01) ==
LOC: LAB 11:22
PROVIDERS: ATTEND Internal Medicine
DX: R10.9 Unspecified abdominal pain (principal); K59.00 Constipation, unspecified; Z79.899 Other long term (current) drug therapy; R93.3 Abnormal findings on diagnostic imaging of other parts of digestive tract
CPT/HCPCS: 36415; 74177; 82565; Q9963; Q9967